=== PATIENT | female | born 1990 | race American Indian/Alaskan Native ===

== ENCOUNTER 2017-04-08 09:00 | Inpatient (IN) | payer MEDICAID ==
[2017-04-08 10:12] LABS: Hematocrit 20.5 % (30.3-42.9); Hemoglobin 6.4 gm/dl (10.1-14.3)
--- NOTE | 2017-04-08 11:43 | Ultrasound Report ---
ULTRASOUND BIOPHYSICAL PROFILE: History: well being Technique: Transabdominal ultrasound with Doppler interrogation. 2 - breathing movements 2 - movements 2 - posture and tone 2 - Qualitative amniotic fluid volume 8 - TOTAL SCORE OF POSSIBLE 8 Heart Rate (bpm) 127
--- NOTE | 2017-04-08 11:44 | Ultrasound Report ---
ULTRASOUND OB LIMITED History: well being Technique: Transabdominal ultrasound with Doppler interrogation. Gestation: Single Position: Cephalic Amniotic Fluid: Decreased JAN = 5.2 cm Heart Rate: 137 BPM
[2017-04-08] MEDS ORDERED: NACL 0.9% 500 ML 500 ML IV SCH (11:52)
[2017-04-08] MEDS ORDERED: BRETHINE SUB-Q PRN ×2 (14:34→21:10)
--- NOTE | 2017-04-08 14:44 | History and Physical Report ---
History of Present Illness Date of examination: 04/08/17 Date of admission: 03/29/17 Chief complaint: SIUP at 37 weeks with symptomatic anemia. History of present illness: Patient is a 26 year old , LMP 07/21/16, EDC 04/27/17 at 37 weeks and 2 days who was admitted for symptomatic anemia. Patient is managed by [facility]. Prior to that, she was receiving care at another doctor. Her H/H was 9.7 at the initial visit. Earlier this month, it decreased to 6.9/23. Patient has been on iron but this week, she started to experience lightheadedness. She was seen in the office yesterday and sent to the hospital for evaluation, but she did not want to go. This AM, she was sent for NST, BPP, and repeat H/H. Current H/H is 6.4/20. NST is CAT 1. JAN is 5.2. Past History Past Medical History: other (anemia) Past Surgical History: no surgical history - Obstetrical History Expected Date of Delivery: 04/27/17 Actual Gestation: 37 Week(s) 2 Day(s) : 4 Para: 3 Hx # Term Pregnancies: 3 Number of Living Children: 3 Medications and Allergies Allergies Allergy/AdvReac Type Severity Reaction Status Date / Time No Known Allergies Allergy Unverified 04/08/17 09:27 Home Medications Medication Instructions Recorded Confirmed Last Taken Type Children's Ferrous Sulfate 56 mg PO DAILY 04/08/17 04/08/17 04/07/17 08:00 History Vit No.129/Iron/Folic 1 tab PO BID 04/08/17 04/08/17 04/07/17 18:00 History [ One Daily Tablet] Active Meds: Active Medications Sodium Chloride (Nacl 0.9% 500 Ml) 500 mls @ 0 mls/hr IV ONCE LUCINA PRN Reason: As Directed Stop: 04/08/17 23:00 - Vital Signs Vital signs: Vital Signs Pulse BP 88 91/54 04/08/17 09:39 04/08/17 09:39 Temp Pulse Resp BP Pulse Ox 97.6 F 92 H 18 102/52 99 04/08/17 14:16 04/08/17 14:39 04/08/17 14:16 04/08/17 14:17 04/08/17 14:39 - Physical Exam Cardiovascular: Normal S1, Normal S2 Lungs: Positive: Clear to auscultation Vulva: both: normal Adnexa: both: normal Deep Tendon Reflex Grade: Normal +2 - Obstetrical FHR: category 1 Uterine Contraction Monitor Mode: External Cervical Dilatation: 0 Cervical Effacement Percentage: 50 station: -2 Uterine Contraction Pattern: Absent Results Result Diagrams: 04/08/17 09:45 Abnormal lab results 04/08/17 04/08/17 Range/Units 09:45 12:15 Hgb 6.4 L (10.1-14.3) gm/dl Hct 20.5 L (30.3-42.9) % Crossmatch See Detail All other labs normal. Assessment and Plan - Patient Problems (1) 37 weeks gestation of Current Visit: Yes Status: Acute Plan to address problem: Admit to labor floor. Routine admitting labs. IV fluid. (2) Signs and symptoms of anemia Current Visit: Yes Status: Acute Plan to address problem: Transfuse 2 units of PRBCs. CBC 3 hrs after second unit. (3) Oligohydramnios Current Visit: Yes Status: Acute Plan to address problem: Admit patient to labor floor. and toco monitoring. Patient is being transfused now. Will induce labor with cervidil after transfusion is completed. Case was discussed with MFM Dr. Reid.
[2017-04-08] MEDS ORDERED: LACTATED RINGERS 1,000 ML IV SCH (15:00)
[2017-04-08] MEDS ORDERED: CERVIDIL VG ONE (21:07)
[2017-04-08] MEDS ORDERED: PHENERGAN PO PRN (21:10)
[2017-04-08] MEDS ORDERED: BRETHINE IVP PRN (21:10)
[2017-04-08] MEDS ORDERED: NARCAN 0.4 MG/1 ML IV PRN (21:10)
[2017-04-08] MEDS ORDERED: ZOFRAN IV PRN (21:10)
[2017-04-08] MEDS ORDERED: ePHEDrine SULFATE IV PRN (21:10)
[2017-04-08] MEDS ORDERED: XYLOCAINE 2% INFILTRATI ONE (21:10)
[2017-04-08] MEDS ORDERED: STADOL IV PRN (21:10)
[2017-04-08] MEDS ORDERED: MINERAL OIL PO PRN (21:10)
[2017-04-08] MEDS ORDERED: SUBLIMAZE IV PRN (21:27)
[2017-04-08] MEDS: LACTATED RINGERS 1,000 ML IV SCH (21:45)
[2017-04-08] MEDS ORDERED: PITOCin/NS 30 UNIT/500ML 30 UNITS/500 ML BAG IV SCH (22:00)
[2017-04-08] MEDS ORDERED: PITOCin/NS 20 UNIT/1000ML DRIP 20 UNITS/1,000 ML BAG IV SCH (22:00)
[2017-04-08 23:05] LABS: Hematocrit 25.3 % (30.3-42.9); Hemoglobin 8.1 gm/dl (10.1-14.3); Mean Corpuscular HGB Conc 32 % (30-34); Mean Corpuscular Volume 71 fl (79-97); Platelet Count 266 K/mm3 (140-440); Red Blood Count 3.59 M/mm3 (3.65-5.03)
[2017-04-08 23:07] LABS: Mean Corpuscular Hemoglobin 23 pg (28-32); Red Cell Distribution Width 20.6 % (13.2-15.2)
[2017-04-09] MEDS: LACTATED RINGERS 1,000 ML IV SCH ×2 (06:35→16:22)
--- NOTE | 2017-04-09 11:33 | Progress Note ---
Assessment and Plan - Patient Problems (1) 37 weeks gestation of Current Visit: Yes Status: Acute Plan to address problem: Admit to labor floor. Routine admitting labs. IV fluid. (2) Signs and symptoms of anemia Current Visit: Yes Status: Acute Plan to address problem: Patient is feeling better after transfusion. (3) Oligohydramnios Current Visit: Yes Status: Acute Plan to address problem: . Continue and toco monitoring. Will start pitocin augmentation. Anticipate . Subjective - Subjective Date of service: 04/09/17 Principal diagnosis: SIUP at 37 weeks and 3 days with symptomatic anemia and oligohydramnios Interval history: Patient is a 26 year old , LMP 07/21/16, EDC 04/27/17 at 37 weeks and 2 days who was admitted for symptomatic anemia. She received 2 units of blood and her H/H improved to 8.1/25.3. Sonogram showed JAN 5.2. Patient was induced with cervidil which was removed at 10 AM today. She is having occasional contractions. tracing is CAT1. Objective - Vital Signs Vital Signs: Vital Signs - 12hr 04/09/17 04/09/17 04/09/17 00:15 00:20 00:25 Temperature Pulse Rate 85 82 82 Respiratory Rate Blood Pressure Blood Pressure [Left] O2 Sat by Pulse 97 97 97 Oximetry 04/09/17 04/09/17 04/09/17 00:30 00:36 00:41 Temperature Pulse Rate 83 75 79 Respiratory Rate Blood Pressure Blood Pressure [Left] O2 Sat by Pulse 97 97 97 Oximetry 04/09/17 04/09/17 04/09/17 00:45 00:50 00:55 Temperature Pulse Rate 84 82 81 Respiratory Rate Blood Pressure Blood Pressure [Left] O2 Sat by Pulse 96 97 98 Oximetry 04/09/17 04/09/17 04/09/17 01:00 01:05 01:10 Temperature Pulse Rate 81 80 81 Respiratory Rate Blood Pressure Blood Pressure [Left] O2 Sat by Pulse 99 98 97 Oximetry 04/09/17 04/09/17 04/09/17 01:15 01:20 01:25 Temperature Pulse Rate 80 82 78 Respiratory Rate Blood Pressure Blood Pressure [Left] O2 Sat by Pulse 98 98 97 Oximetry 04/09/17 04/09/17 04/09/17 01:31 01:35 01:40 Temperature Pulse Rate 91 H 79 76 Respiratory Rate Blood Pressure Blood Pressure [Left] O2 Sat by Pulse 96 99 98 Oximetry 04/09/17 04/09/17 04/09/17 01:45 01:50 01:56 Temperature Pulse Rate 78 80 86 Respiratory Rate Blood Pressure Blood Pressure [Left] O2 Sat by Pulse 98 98 98 Oximetry 04/09/17 04/09/17 04/09/17 02:00 02:01 02:05 Temperature Pulse Rate 77 86 82 Respiratory Rate Blood Pressure 94/52 Blood Pressure [Left] O2 Sat by Pulse 98 100 Oximetry 04/09/17 04/09/17 04/09/17 02:11 02:16 02:20 Temperature Pulse Rate 88 79 88 Respiratory Rate Blood Pressure Blood Pressure [Left] O2 Sat by Pulse 98 98 96 Oximetry 04/09/17 04/09/17 04/09/17 02:26 02:31 04:04 Temperature Pulse Rate 91 H 107 H 92 H Respiratory Rate Blood Pressure Blood Pressure [Left] O2 Sat by Pulse 99 100 96 Oximetry 04/09/17 04/09/17 04/09/17 04:08 04:13 04:17 Temperature Pulse Rate 88 92 H 94 H Respiratory Rate Blood Pressure Blood Pressure [Left] O2 Sat by Pulse 97 95 88 Oximetry 04/09/17 04/09/17 04/09/17 04:19 04:22 04:23 Temperature Pulse Rate 91 H 95 H 80 Respiratory Rate Blood Pressure Blood Pressure [Left] O2 Sat by Pulse 96 93 94 Oximetry 04/09/17 04/09/17 04/09/17 04:28 04:29 04:33 Temperature Pulse Rate 88 88 90 Respiratory Rate Blood Pressure Blood Pressure [Left] O2 Sat by Pulse 94 94 96 Oximetry 04/09/17 04/09/17 04/09/17 04:35 04:38 04:41 Temperature Pulse Rate 88 85 99 H Respiratory Rate Blood Pressure Blood Pressure [Left] O2 Sat by Pulse 92 96 90 Oximetry 04/09/17 04/09/17 04/09/17 04:44 04:48 04:53 Temperature Pulse Rate 94 H 89 66 Respiratory Rate Blood Pressure Blood Pressure [Left] O2 Sat by Pulse 98 96 96 Oximetry 04/09/17 04/09/17 04/09/17 04:58 05:03 05:09 Temperature Pulse Rate 81 89 89 Respiratory Rate Blood Pressure Blood Pressure [Left] O2 Sat by Pulse 99 97 97 Oximetry 04/09/17 04/09/17 04/09/17 05:12 05:13 05:18 Temperature Pulse Rate 98 H 92 H 94 H Respiratory Rate Blood Pressure Blood Pressure [Left] O2 Sat by Pulse 93 99 98 Oximetry 04/09/17 04/09/17 04/09/17 05:23 05:28 05:32 Temperature Pulse Rate 86 88 90 Respiratory Rate Blood Pressure Blood Pressure [Left] O2 Sat by Pulse 99 97 87 Oximetry 04/09/17 04/09/17 04/09/17 05:33 05:38 05:42 Temperature Pulse Rate 86 85 55 L Respiratory Rate Blood Pressure Blood Pressure [Left] O2 Sat by Pulse 98 99 89 Oximetry 04/09/17 04/09/17 04/09/17 05:44 05:48 05:53 Temperature Pulse Rate 89 91 H 87 Respiratory Rate Blood Pressure Blood Pressure [Left] O2 Sat by Pulse 98 99 98 Oximetry 04/09/17 04/09/17 04/09/17 05:58 06:21 07:23 Temperature Pulse Rate 93 H 86 83 Respiratory Rate Blood Pressure 108/62 Blood Pressure [Left] O2 Sat by Pulse 99 97 Oximetry 04/09/17 04/09/17 04/09/17 07:25 07:28 07:33 Temperature 98.0 F Pulse Rate 93 H 91 H 92 H Respiratory 20 Rate Blood Pressure 91/53 Blood Pressure 91/53 [Left] O2 Sat by Pulse 99 98 Oximetry 04/09/17 04/09/17 04/09/17 07:38 07:43 07:48 Temperature Pulse Rate 92 H 92 H 90 Respiratory Rate Blood Pressure Blood Pressure [Left] O2 Sat by Pulse 98 96 98 Oximetry 04/09/17 04/09/17 04/09/17 07:53 07:58 08:03 Temperature Pulse Rate 90 92 H 94 H Respiratory Rate Blood Pressure Blood Pressure [Left] O2 Sat by Pulse 97 97 95 Oximetry 04/09/17 04/09/17 04/09/17 08:08 08:13 08:18 Temperature Pulse Rate 87 90 89 Respiratory Rate Blood Pressure Blood Pressure [Left] O2 Sat by Pulse 96 96 96 Oximetry 04/09/17 04/09/17 04/09/17 08:23 08:28 08:33 Temperature Pulse Rate 91 H 95 H 93 H Respiratory Rate Blood Pressure Blood Pressure [Left] O2 Sat by Pulse 96 95 96 Oximetry 04/09/17 04/09/17 04/09/17 08:36 08:38 08:43 Temperature Pulse Rate 101 H 95 H 95 H Respiratory Rate Blood Pressure Blood Pressure [Left] O2 Sat by Pulse 94 96 98 Oximetry 04/09/17 10:08 Temperature Pulse Rate 83 Respiratory Rate Blood Pressure 96/53 Blood Pressure [Left] O2 Sat by Pulse Oximetry - Exam Cardiovascular: Normal S1, Normal S2 Lungs: Clear to auscultation Vulva: both: normal FHR: category 1 Uterine Contraction Monitor Mode: External Cervical Dilatation: 2 Cervical Effacement Percentage: 50 station: -2 Uterine Contraction Pattern: Irregular Deep Tendon Reflex Grade: Normal +2 - Labs Labs: Abnormal Labs 04/08/17 04/08/17 04/08/17 09:45 12:15 22:39 RBC 3.59 L Hgb 6.4 L 8.1 L Hct 20.5 L 25.3 L MCV 71 L MCH 23 L RDW 20.6 H Crossmatch See Detail Laboratory Results - last 24 hr 04/08/17 04/08/17 12:15 22:39 WBC 10.3 RBC 3.59 L Hgb 8.1 L Hct 25.3 L MCV 71 L MCH 23 L MCHC 32 RDW 20.6 H Plt Count 266 Blood Type O POSITIVE Antibody Screen Negative Crossmatch See Detail
[2017-04-09] MEDS: PITOCin/NS 30 UNIT/500ML 30 UNITS/500 ML BAG IV SCH ×5 (13:08→16:23)
--- NOTE | 2017-04-09 19:03 | Event Note ---
Date: 04/09/17 S: Pt in semi-chua's position. Partner at bedside. Reports feeling her contractions but tolerable. Denies fatigue, lightheadedness or palpitations O: FHR 130, moderate variability, 15x15 accels, no decels CTXS q2-5mins, palpate moderate SVE 2-3/50/-2/vtx/intact Pitocin @ 18 mu/min A: 26yo G 4 P 3 0 0 3 @ 37 weeks 3 days S/P blood transfusion for symptomatic anemia No active labor P: Continue routine labor orders Continue oxytocin for labor induction Anticipate vaginal delivery
[2017-04-10] MEDS: LACTATED RINGERS 1,000 ML IV SCH (00:24)
[2017-04-10] MEDS ORDERED: CYTOTEC ONE ×2 (09:04→20:23)
--- NOTE | 2017-04-10 09:10 | Progress Note ---
Assessment and Plan - Patient Problems (1) 37 weeks gestation of Current Visit: Yes Status: Acute Plan to address problem: Admit to labor floor. Routine admitting labs. IV fluid. (2) Signs and symptoms of anemia Current Visit: Yes Status: Acute Plan to address problem: Patient is feeling better after transfusion. (3) Oligohydramnios Current Visit: Yes Status: Acute Plan to address problem: . Continue and toco monitoring. Induction restarted with 25 mcg of cytotec which was inserted at 9:10 AM. Anticipate . Subjective - Subjective Date of service: 04/10/17 Principal diagnosis: SIUP at 37 weeks and 3 days with symptomatic anemia and oligohydramnios Interval history: Patient is a 26 year old , LMP 07/21/16, EDC 04/27/17 at 37 weeks and 2 days who was admitted for symptomatic anemia. She received 2 units of blood and her H/H improved to 8.1/25.3. Sonogram showed JAN 5.2. Patient was induced with cervidil and piticin was started later. She had occasional contractions but made no cervical changes. tracing has been CAT1. Pitocin was discontinued last night. She has no contraction at this time. Cervix: 2-3/50%/-2, unchanged. Objective - Vital Signs Vital Signs: Vital Signs - 12hr 04/09/17 04/09/17 04/09/17 21:07 21:12 21:18 Temperature Pulse Rate 78 81 67 Respiratory Rate Blood Pressure Blood Pressure [Left] O2 Sat by Pulse 98 97 98 Oximetry 04/09/17 04/09/17 04/09/17 21:23 21:29 21:32 Temperature Pulse Rate 69 80 70 Respiratory Rate Blood Pressure Blood Pressure [Left] O2 Sat by Pulse 96 98 91 Oximetry 04/09/17 04/09/17 04/09/17 21:34 21:39 21:44 Temperature Pulse Rate 69 86 84 Respiratory Rate Blood Pressure Blood Pressure [Left] O2 Sat by Pulse 97 98 98 Oximetry 04/09/17 04/09/17 04/09/17 21:49 21:54 21:55 Temperature Pulse Rate 84 84 79 Respiratory Rate Blood Pressure Blood Pressure [Left] O2 Sat by Pulse 96 99 93 Oximetry 04/09/17 04/09/17 04/09/17 21:59 22:04 22:09 Temperature Pulse Rate 86 81 72 Respiratory Rate Blood Pressure Blood Pressure [Left] O2 Sat by Pulse 96 96 96 Oximetry 04/09/17 04/09/17 04/09/17 22:14 22:19 22:24 Temperature Pulse Rate 83 80 79 Respiratory Rate Blood Pressure Blood Pressure [Left] O2 Sat by Pulse 97 95 97 Oximetry 04/09/17 04/09/17 04/09/17 22:29 22:34 22:39 Temperature Pulse Rate 75 79 80 Respiratory Rate Blood Pressure Blood Pressure [Left] O2 Sat by Pulse 97 98 96 Oximetry 04/09/17 04/09/17 04/09/17 22:40 22:44 22:49 Temperature Pulse Rate 80 78 79 Respiratory Rate Blood Pressure Blood Pressure [Left] O2 Sat by Pulse 88 95 98 Oximetry 04/09/17 04/09/17 04/09/17 22:51 22:54 22:59 Temperature Pulse Rate 78 81 81 Respiratory Rate Blood Pressure Blood Pressure [Left] O2 Sat by Pulse 94 97 98 Oximetry 04/09/17 04/10/17 04/10/17 23:04 01:11 05:25 Temperature 97.4 F L Pulse Rate 79 76 80 Respiratory 16 Rate Blood Pressure 100/51 Blood Pressure 100/51 [Left] O2 Sat by Pulse 99 98 Oximetry - Exam Cardiovascular: Normal S1, Normal S2 Lungs: Clear to auscultation Vulva: both: normal FHR: category 1 Uterine Contraction Monitor Mode: External Cervical Dilatation: 2 Cervical Effacement Percentage: 50 station: -2 Uterine Contraction Pattern: Absent Uterine Contraction Intensity: Mild Deep Tendon Reflex Grade: Normal +2 - Labs Labs: Abnormal Labs 04/08/17 04/08/17 04/08/17 09:45 12:15 22:39 RBC 3.59 L Hgb 6.4 L 8.1 L Hct 20.5 L 25.3 L MCV 71 L MCH 23 L RDW 20.6 H Crossmatch See Detail Laboratory Results - last 24 hr 04/08/17 22:39 RPR Nonreactive
[2017-04-10] MEDS ORDERED: ANCEF/STERILE WATER 2 GM/20 ML 2 GM/20 ML SYRINGE IV NR (12:00)
--- NOTE | 2017-04-10 12:46 | Progress Note ---
Assessment and Plan A: IUP @ 37 4/7 weeks Category I Tracing Anemia GBS Negative P: AROM Internals x 2 Start Pitocin Augmentation Subjective - Subjective Date of service: 04/10/17 Principal diagnosis: SIUP at 37 weeks and 3 days with symptomatic anemia and oligohydramnios Patient reports: movement normal, contractions Objective - Vital Signs Vital Signs: Vital Signs - 12hr 04/10/17 04/10/17 04/10/17 01:11 05:25 09:16 Temperature 97.4 F L 98.2 F Pulse Rate 76 80 82 Respiratory 16 16 Rate Blood Pressure 100/51 Blood Pressure 100/51 96/55 [Left] O2 Sat by Pulse 98 100 Oximetry 04/10/17 04/10/17 09:21 09:22 Temperature Pulse Rate 78 82 Respiratory Rate Blood Pressure 96/55 Blood Pressure [Left] O2 Sat by Pulse 0 L Oximetry - Exam Breasts: normal Lungs: Clear to auscultation, Normal air movement Abdomen: Present: normal appearance, soft, normal bowel sounds Uterus: Present: normal, firm, fundal height above umbilicus FHR: category 1 Uterine Contraction Monitor Mode: Internal Cervical Dilatation: 3.5 (Small amount of bloody fluids upon AROM at 1227) Cervical Effacement Percentage: 70 station: -3 Uterine Contraction Pattern: Irregular Uterine Tone Measurement Phase: Resting Uterine Contraction Intensity: Mild Extremities: normal - Labs Labs: Abnormal Labs 04/08/17 04/08/17 04/08/17 09:45 12:15 22:39 RBC 3.59 L Hgb 6.4 L 8.1 L Hct 20.5 L 25.3 L MCV 71 L MCH 23 L RDW 20.6 H Crossmatch See Detail
[2017-04-10] MEDS ORDERED: PITOCin/NS 30 UNIT/500ML 30 UNITS/500 ML BAG IV SCH (13:00)
[2017-04-10] MEDS ORDERED: MILK OF MAGNESIA PO PRN (16:28)
[2017-04-10] MEDS ORDERED: DULCOLAX PR PRN (16:28)
[2017-04-10] MEDS ORDERED: BENADRYL PO PRN (16:28)
[2017-04-10] MEDS ORDERED: NORCO 5/325 PO PRN (16:28)
[2017-04-10] MEDS ORDERED: TUCKS PAD TP PRN (16:28)
--- NOTE | 2017-04-10 16:35 | Procedure Note ---
OB Delivery Note - Delivery Date of Delivery: 04/10/17 Surgeon: AREN MATOS Estimated blood loss: 200cc - Vaginal Delivery presentation: vertex Delivery position: OA Intrapartum events: mult. late decelerations, mult.variable deceleratio Delivery induction: cervidil Delivery augmentation: rupture of membranes, pitocin Delivery monitor: internal FHT, internal uterine Route of delivery: Delivery placenta: spontaneous Delivery cord: 3 umbilical vessels Episiotomy: none Delivery laceration: none Anesthesia: none Delivery comments: of a live 6'15 female infant over a intact perineum under IV pain control with Apgars of 8 and 9 at 1615 on 04/10/2017. directly to maternal abd/ chest, skin to skin contact. Spontaneous delivery of placenta complete and intact with Rose side presenting at 1617. Fundus is firm and midline located 4 below the U. Lochia is scant. Delayed cord clamping and cutting; Cord cut by the father of the baby. Placenta discarded. Cord blood collected. - Infant A at 1 minute: 8 at 5 minutes: 9 Gender: Female (6'15)
[2017-04-10] MEDS ORDERED: SODIUM CHLORIDE FLUSH SYRINGE 10 ML IV NR (17:00)
[2017-04-10] MEDS ORDERED: PITOCin/NS 20 UNIT/1000ML DRIP 0 MILLIUNITS/0 ML BAG IV ONE (20:18)
[2017-04-10] MEDS ORDERED: PITOCin/NS 20 UNIT/1000ML DRIP 20,000 MILLIUNITS/1,000 ML BAG IV ONE (20:23)
[2017-04-10] MEDS ORDERED: CYTOTEC VG ONE ×2 (20:27→22:00)
[2017-04-10] MEDS ORDERED: NACL 0.9% 1000 ML 1,000 ML IV ONE (20:30)
[2017-04-10] MEDS ORDERED: NACL 0.9% 1000 ML 1,000 ML ONE ×3 (20:30→23:18)
[2017-04-10] MEDS ORDERED: NACL 0.9% 500 ML 500 ML IV NR (20:36)
[2017-04-10] MEDS ORDERED: HEMABATE IM ONE ×3 (20:38→21:36)
[2017-04-10] MEDS ORDERED: BENADRYL IV ONE (20:45)
[2017-04-10] MEDS ORDERED: TYLENOL PR PRN (20:45)
--- NOTE | 2017-04-10 20:48 | Event Note ---
Date: 04/10/17 Called to evaluate pt with hemorrhage. She is a 26 year old s/ p today after 2 day induction due to symptomatic anemia. She received 2 units of blood and her H/H improved from 6.4/20.5 to 8.1/25.3 and her EBL was 200mls. After transfer to the floor she started heavy bleeding ~ 1000mls per the nurse, and pt temporarily lost consciousness (< 1 min). She is currently in the ICU after receiving IV fluid bolus, IM Methergine, VT Cytotec and blood has been ordered 4 units. VSS BP 106/53 P 102 Pt is Alert and oriented x3 Abdomen - Fundus firm, but continuous oozing Linares catheter placed Will take to the OR for D&C/Uterine exploration for suspected retained POC
[2017-04-10 20:58] LABS: Hematocrit 22.1 % (30.3-42.9); Hemoglobin 6.7 gm/dl (10.1-14.3)
[2017-04-10] MEDS ORDERED: LACTATED RINGERS 1,000 ML ONE ×2 (21:31→22:40)
[2017-04-10] MEDS ORDERED: LACTATED RINGERS 1,000 ML IV ONE (21:33)
[2017-04-10] MEDS ORDERED: METHERGINE IM ONE ×2 (21:34→23:22)
[2017-04-10] MEDS ORDERED: AMIDATE IV ONE (22:05)
[2017-04-10] MEDS ORDERED: XYLOCAINE MPF 2% ONE (22:05)
[2017-04-10] MEDS ORDERED: DIPRIVAN 10 MG/ML IV ONE (22:05)
[2017-04-10] MEDS ORDERED: ePHEDrine SULFATE ONE (22:37)
[2017-04-10] MEDS ORDERED: VERSED ONE (22:47)
[2017-04-10] MEDS ORDERED: NACL 0.9% 500 ML 500 ML IV ONE ×2 (23:05→23:49)
--- NOTE | 2017-04-11 00:02 | Operative Report ---
Operative Report Operative Report: PREOPERATIVE DIAGNOSIS: 1. Status post normal spontaneous vaginal delivery 2. hemorrhage POSTOPERATIVE DIAGNOSIS: Same OPERATIVE PROCEDURE: 1. Dilatation and curettage 2. Placement of Bakri balloon SURGEON: Juarez Shipley MD ANESTHESIA: Gen. mask ANESTHESIOLOGIST: Dr. Block ESTIMATED BLOOD LOSS: 1500 mL's FINDINGS: A 20 week size uterus with scant amounts of products of conception. No obvious cervical lacerations. Persistent scant oozing from the uterus COMPLICATIONS: None COUNTS: Correct x3. PROCEDURE: After the patient was correctly identified, and after general anesthesia was administered, the patient was prepped and draped in the usual sterile fashion and placed in dorsal lithotomy position. First speculum was placed in the vaginal vault and the anterior lip of the cervix was grasped using Ring forceps. The 14 mm vaccurette was used to suction blood and products of conception from the uterine cavity. After all the products of conception were removed, the oozing persisted through the cervical os despite bimanual massage and IV Pitocin. The uterus was firm. At this point the Bakri balloon was then placed, and placement was not to the fundus, but was occluding the lower uterine segment which was confirmed by ultrasound. Since the bleeding had slowed down tremendously, replacement of the balloon was not performed. At this point the procedure was considered complete. All instruments were removed from the vagina. The patient tolerated the procedure well and was transferred to the recovery room in stable condition.
[2017-04-11 00:12] LABS: INR 3.43 (0.87-1.13)
[2017-04-11 01:40] LABS: Partial Thromboplastin Time 70.4 Sec. (24.2-36.6)
[2017-04-11] MEDS ORDERED: NACL 0.9% 1000 ML 1,000 ML IV ONE (03:00)
[2017-04-11] MEDS ORDERED: NACL 0.9% 1000 ML 1,000 ML ONE (04:02)
[2017-04-11] MEDS: MOTRIN PO SCH ×2 (05:28→11:20)
[2017-04-11] MEDS: LACTATED RINGERS 1,000 ML IV SCH ×4 (05:29→22:26)
[2017-04-11 07:59] LABS: Hematocrit 21.6 % (30.3-42.9); Hemoglobin 7.3 gm/dl (10.1-14.3)
--- NOTE | 2017-04-11 08:31 | Progress Note ---
Assessment and Plan - Patient Problems (1) (normal spontaneous vaginal delivery) Onset Date: 04/11/17 Current Visit: Yes Status: Resolved Plan to address problem: A: S/P with hemorrhage - improved s/p D&C and placement of Bakri Balloon Acute blood loss anemia - improved with 6 units of PRBC's (2 prior to delivery + 4 post delivery) Coagulation defects - DIC - improving after 1 unit FFP P: Will continue present management in ICU Will remove Bakri Balloon this afternoon Continue to monitor bleeding and coagulation studies (2) hemorrhage Onset Date: 04/11/17 Current Visit: Yes Status: Resolved Qualifiers: hemorrhage type: coagulation defects Qualified Code(s): O72.3 - coagulation defects (3) Acute blood loss anemia Onset Date: 04/11/17 Current Visit: Yes Status: Acute Subjective - Subjective Date of service: 04/11/17 Principal diagnosis: s/p with hemorrhage; s/p D&C Interval history: Pt is feeling well, tolerating sips of water. She complains of left hand swelling. Patient reports: voiding normally (via vickers) : doing well, bottle feeding Objective - Vital Signs Latest vital signs: Vital Signs Temp Pulse Resp BP BP BP Pulse Ox 04/11/17 08:15 115 H 26 H 101/60 04/11/17 08:00 113 H 26 H 87/51 95 04/11/17 07:45 115 H 24 109/65 98 04/11/17 07:30 115 H 16 104/63 100 04/11/17 07:15 112 H 24 99/61 04/11/17 07:00 114 H 19 105/63 100 04/11/17 06:45 111 H 16 106/61 04/11/17 06:30 113 H 26 H 100/67 04/11/17 06:20 115 H 23 105/61 100 04/11/17 06:10 115 H 28 H 114/66 100 04/11/17 06:00 114 H 21 114/66 98 04/11/17 05:50 118 H 26 H 110/65 100 04/11/17 05:40 110 H 17 103/61 100 04/11/17 05:30 112 H 24 105/62 99 04/11/17 05:20 114 H 22 105/62 98 04/11/17 05:10 118 H 23 101/60 100 04/11/17 05:00 115 H 18 101/60 99 04/11/17 04:50 119 H 21 105/59 99 04/11/17 04:42 107 H 21 108/67 99 04/11/17 04:40 115 H 28 H 108/67 100 04/11/17 04:33 100 04/11/17 04:30 118 H 26 H 108/67 04/11/17 04:20 114 H 27 H 108/61 100 04/11/17 04:16 98.2 F 113 H 27 H 107/61 100 04/11/17 04:10 111 H 25 H 107/61 100 04/11/17 04:00 121 H 26 H 107/61 99 04/11/17 03:54 97.6 F 02 03:50 128 H 22 100/53 100 04/11/17 03:46 97.6 F 126 H 24 100/53 100 04/11/17 03:40 125 H 26 H 104/56 100 04/11/17 03:31 97.6 F 132 H 24 102/60 100 04/11/17 03:30 128 H 21 104/56 100 04/11/17 03:20 123 H 28 H 102/60 99 04/11/17 03:10 127 H 21 116/61 100 04/11/17 03:00 126 H 26 H 116/61 100 04/11/17 02:53 98.7 F 130 H 22 108/62 100 04/11/17 02:50 130 H 17 108/62 100 04/11/17 02:40 122 H 24 102/60 100 04/11/17 02:30 97.6 F 126 H 15 102/60 100 04/11/17 02:20 114 H 25 H 95/57 100 04/11/17 02:10 123 H 21 97/56 100 04/11/17 02:00 97.6 F 122 H 24 97/56 100 04/11/17 01:50 131 H 14 98/47 98 04/11/17 01:45 98.1 F 127 H 24 98/47 98 04/11/17 01:40 127 H 20 96/45 99 04/11/17 01:30 132 H 22 96/45 94 04/11/17 01:27 98.7 F 120 H 18 96/45 96 02//18 01:20 132 H 19 105/43 93 02/23/18 01:15 97.6 F 126 H 17 95/44 95 04/11/18 01:10 97.6 F 127 H 17 93/42 95 02/18 01:00 125 H 20 96/40 92 04/11/18 00:50 134 H 11 L 79/39 91 04/11/18 00:40 135 H 18 90/48 93 04/11/18 00:30 126 H 18 96/44 96 04/11/18 00:25 121 H 20 100/49 91 04/11/18 00:20 120 H 24 90/43 96 04/11/18 00:15 114 H 18 100/34 98 04/11/18 00:10 126 H 13 107/60 100 04/11/18 00:08 97.6 F 122 H 28 H 82/37 97 02/22/18 23:50 107/60 0222/18 23:40 107/60 0222/18 23:36 107/60 02/18 21:50 102 H 19 107/60 02/18 21:40 99 H 16 106/53 100 02/22/18 21:30 95 H 23 105/56 0222/18 21:24 98.2 F 97 H 19 103/54 100 0222/18 21:20 98 H 24 106/53 100 02/22/18 21:10 97 H 26 H 96/60 02/22/18 21:09 98.7 F 112 H 20 96/60 02/18 21:00 113 H 17 93/40 100 0222/18 20:50 91 H 27 H 22/18 20:40 94 H 21 93/43 02/22/18 20:26 73/33 02/22/18 20:17 117 H 18 69/31 02/22/18 20:10 105 H 20 71/28 02/22/18 17:37 97 H 98 02/22/18 17:32 90 98 02/22/18 17:27 98 H 98 02/22/18 17:22 92 H 98 02/22/18 17:17 92 H 98 02/22/18 17:12 90 98 0222/18 17:07 91 H 98 0222/18 17:02 94 H 99 04/10/17 16:57 99 H 98 04/10/17 16:52 97 H 98 04/10/17 16:47 95 H 98 04/10/17 16:42 94 H 98 04/10/17 16:37 99 H 98 04/10/17 16:35 96 H 97/48 04/10/17 16:32 102 H 98 04/10/17 16:26 118 H 99 04/10/17 13:17 81 117/63 04/10/17 09:22 82 96/55 04/10/17 09:21 78 0 L 04/10/17 09:16 98.2 F 82 16 96/55 100 Intake and Output 04/10/17 04/11/17 04/11/17 22:59 06:59 14:59 Intake Total 748 1441.667 Output Total 1000 Balance 748 441.667 Intake: IV 516.667 Lactated Ringers 1,000 ml 16.667 @ 125 mls/hr IV DIRECT LUCINA Rx#:[id number] Oral 120 Blood Product 748 805 Fresh Frozen Plasma 305 Thawed Unit [id number] Leukoreduced Red Blood 248 Cells Unit [id number] Leukoreduced Red Blood 250 Cells Unit [id number] Leukoreduced Red Blood 250 Cells Unit [id number] Leukoreduced Red Blood 250 Cells Unit [id number] Leukoreduced Red Blood 250 Cells Unit [id number] Output: Drainage 450 Urine 450 Void 100 Other 100 Other: Total, Intake Amount 120 Total, Output Amount 200 Voiding Method Indwelling Catheter Estimated Blood Loss 200 - Exam Breasts: Present: deferred Cardiovascular: Present: Regular rate Lungs: Present: Clear to auscultation Abdomen: Present: normal appearance, soft, tenderness Uterus: Present: normal, firm, fundal height below umbilicus Extremities: Present: normal, tenderness (left hand) - Labs Labs: Abnormal lab results 04/08/17 04/10/17 04/10/17 Range/Units 12:15 00:37 20:50 Hgb 6.7 L (10.1-14.3) gm/dl Hct 22.1 L (30.3-42.9) % PT (12.2-14.9) Sec. INR (0.87-1.13) APTT (24.2-36.6) Sec. Fibrinogen (211-480) mg/dl D-Dimer > 14482 H (0-234) ng/mlDDU POC ABG pCO2 (35-45) POC ABG pO2 (80-105) Crossmatch See Detail 04/10/17 04/10/17 04/11/17 Range/Units 21:48 23:20 07:48 Hgb 7.3 L (10.1-14.3) gm/dl Hct 21.6 L (30.3-42.9) % PT 37.0 H (12.2-14.9) Sec. INR 3.43 H (0.87-1.13) APTT 70.4 H* (24.2-36.6) Sec. Fibrinogen 60 L* (211-480) mg/dl D-Dimer (0-234) ng/mlDDU POC ABG pCO2 27.3 L (35-45) POC ABG pO2 341 H (80-105) Crossmatch Laboratory Results - last 24 hr 04/08/17 04/10/17 04/10/17 12:15 00:37 20:50 Hgb 6.7 L Hct 22.1 L PT INR APTT Fibrinogen D-Dimer > 29703 H POC ABG pH POC ABG pCO2 POC ABG pO2 POC ABG HCO3 POC ABG Total CO2 POC ABG O2 Sat POC ABG Base Excess FiO2 Blood Type O POSITIVE Antibody Screen Negative Crossmatch See Detail 04/10/17 04/10/17 04/11/17 21:48 23:20 07:48 Hgb 7.3 L Hct 21.6 L PT 37.0 H INR 3.43 H APTT 70.4 H* Fibrinogen 60 L* D-Dimer POC ABG pH 7.391 POC ABG pCO2 27.3 L POC ABG pO2 341 H POC ABG HCO3 16.6 POC ABG Total CO2 17 POC ABG O2 Sat 100 POC ABG Base Excess -8 FiO2 100 Blood Type Antibody Screen Crossmatch
[2017-04-11] MEDS ORDERED: LACTATED RINGERS 1,000 ML IV ONE (09:39)
--- NOTE | 2017-04-11 10:01 | Progress Note ---
Assessment and Plan - Patient Problems (1) 37 weeks gestation of Current Visit: Yes Status: Acute Plan to address problem: S/P . (2) (normal spontaneous vaginal delivery) Current Visit: Yes Status: Acute (3) hemorrhage Current Visit: Yes Status: Acute Plan to address problem: Will continue to monitor vitals, H/H, coagulation profile, urine output. IV bolus ordered. (4) DIC (disseminated intravascular coagulation) Current Visit: Yes Status: Acute Plan to address problem: S/P 6 units of PRBCs and 1 FFP[address] in [address]. H/H has improved after transfusion. Bleeding is minimal at this time. Overall status improving. Will monitor coagulation profile, H/H, and renal function. Next labs to be drawn at 12 PM. (5) Oliguria Current Visit: Yes Status: Acute Plan to address problem: IV bolus ordered. Continue to monitor urine output. (6) Anemia Onset Date: ~04/10/17 Current Visit: Yes Status: Acute Qualifiers: Anemia type: other cause Subjective - Subjective Date of service: 04/11/17 Principal diagnosis: s/p with hemorrhage; s/p D&C Interval history: Patient is a 26 year old who is S/P yesterday afternoon. She was transferred to the floor where she began to have hemorrhage. On exam, the uterus was found to be atonic. IV pitocin, [place] cytotec, IM hemabate 4 doses were given. Bleeding continued despite those measures. She recieved 2 units of PRBCs and was taken to the OR for D&C. Scant amount of POCs were found. Blood loss was estimated to be 1500 cc. Bakri ballon was placed. Later on, she went into DIC. She was transfused with 6 units of PRBC and 1 FFP. Bleeding has decerased and Her H/H improved to 7.3/21.6 at 7 AM. BP is 90/60, HR is 115 bpm, urine output is <30cc/hr. Exam: Chest is clear B/L, uterus felt to firm. Ext: mild edema. Patient is alert, awake. oriented at this time. Bakri is scheduled to be removed at 12:30 PM today. CBC and CMP ordered. Objective - Vital Signs Latest vital signs: Vital Signs Temp Pulse Resp BP BP Pulse Ox 04/11/17 08:15 115 H 26 H 101/60 04/11/17 08:00 113 H 26 H 87/51 95 04/11/17 07:45 115 H 24 109/65 98 04/11/17 07:30 115 H 16 104/63 100 04/11/17 07:15 112 H 24 99/61 04/11/17 07:00 114 H 19 105/63 100 04/11/17 06:45 111 H 16 106/61 04/11/17 06:30 113 H 26 H 100/67 04/11/17 06:20 115 H 23 105/61 100 04/11/17 06:10 115 H 28 H 114/66 100 04/11/17 06:00 114 H 21 114/66 98 04/11/17 05:50 118 H 26 H 110/65 100 04/11/17 05:40 110 H 17 103/61 100 04/11/17 05:30 112 H 24 105/62 99 04/11/17 05:20 114 H 22 105/62 98 04/11/17 05:10 118 H 23 101/60 100 04/11/17 05:00 115 H 18 101/60 99 04/11/17 04:50 119 H 21 105/59 99 04/11/17 04:42 107 H 21 108/67 99 04/11/17 04:40 115 H 28 H 108/67 100 04/11/17 04:33 100 04/11/17 04:30 118 H 26 H 108/67 04/11/17 04:20 114 H 27 H 108/61 100 04/11/17 04:16 98.2 F 113 H 27 H 107/61 100 04/11/17 04:10 111 H 25 H 107/61 100 04/11/17 04:00 121 H 26 H 107/61 99 04/11/17 03:54 97.6 F 02 03:50 128 H 22 100/53 100 04/11/17 03:46 97.6 F 126 H 24 100/53 100 04/11/17 03:40 125 H 26 H 104/56 100 04/11/17 03:31 97.6 F 132 H 24 102/60 100 04/11/17 03:30 128 H 21 104/56 100 04/11/17 03:20 123 H 28 H 102/60 99 02//18 03:10 127 H 21 116/61 100 18 03:00 126 H 26 H 116/61 100 18 02:53 98.7 F 130 H 22 108/62 100 18 02:50 130 H 17 108/62 100 04/11/17 02:40 122 H 24 102/60 100 18 02:30 97.6 F 126 H 15 102/60 100 18 02:20 114 H 25 H 95/57 100 18 02:10 123 H 21 97/56 100 04/11/17 02:00 97.6 F 122 H 24 97/56 100 04/11/17 01:50 131 H 14 98/47 98 04/11/17 01:45 98.1 F 127 H 24 98/47 98 04/11/17 01:40 127 H 20 96/45 99 04/11/17 01:30 132 H 22 96/45 94 04/11/17 01:27 98.7 F 120 H 18 96/45 96 04/11/17 01:20 132 H 19 105/43 93 04/11/17 01:15 97.6 F 126 H 17 95/44 95 04/11/18 01:10 97.6 F 127 H 17 93/42 95 04/11/17 01:00 125 H 20 96/40 92 18 00:50 134 H 11 L 79/39 91 18 00:40 135 H 18 90/48 93 04/11/17 00:30 126 H 18 96/44 96 04/11/17 00:25 121 H 20 100/49 91 18 00:20 120 H 24 90/43 96 18 00:15 114 H 18 100/34 98 04/11/18 00:10 126 H 13 107/60 100 18 00:08 97.6 F 122 H 28 H 82/37 97 0222/18 23:50 107/60 0222/18 23:40 107/60 02/18 23:36 107/60 0222/18 21:50 102 H 19 107/60 04/10/18 21:40 99 H 16 106/53 100 18 21:30 95 H 23 105/56 02/22/18 21:24 98.2 F 97 H 19 103/54 100 04/10/17 21:20 98 H 24 106/53 100 04/10/17 21:10 97 H 26 H 96/60 04/10/17 21:09 98.7 F 112 H 20 96/60 04/10/17 21:00 113 H 17 93/40 100 04/10/17 20:50 91 H 27 H 04/10/17 20:40 94 H 21 93/43 04/10/17 20:26 73/33 04/10/17 20:17 117 H 18 69/31 04/10/17 20:10 105 H 20 71/28 04/10/17 17:37 97 H 98 04/10/17 17:32 90 98 04/10/17 17:27 98 H 98 04/10/17 17:22 92 H 98 04/10/17 17:17 92 H 98 04/10/17 17:12 90 98 04/10/17 17:07 91 H 98 04/10/17 17:02 94 H 99 04/10/17 16:57 99 H 98 04/10/17 16:52 97 H 98 04/10/17 16:47 95 H 98 04/10/17 16:42 94 H 98 04/10/17 16:37 99 H 98 04/10/17 16:35 96 H 97/48 04/10/17 16:32 102 H 98 04/10/17 16:26 118 H 99 04/10/17 13:17 81 117/63 Intake and Output 04/10/17 04/11/17 04/11/17 23:59 07:59 15:59 Intake Total 748 1441.667 Output Total 1000 Balance 748 441.667 Intake: IV 516.667 Lactated Ringers 1,000 ml 16.667 @ 125 mls/hr IV DIRECT LUCINA Rx#:[id number] Oral 120 Blood Product 748 805 Fresh Frozen Plasma 305 Thawed Unit [id number] Leukoreduced Red Blood 248 Cells Unit [id number] Leukoreduced Red Blood 250 Cells Unit [id number] Leukoreduced Red Blood 250 Cells Unit [id number] Leukoreduced Red Blood 250 Cells Unit [id number] Leukoreduced Red Blood 250 Cells Unit [id number] Output: Drainage 450 Urine 450 Void 100 Other 100 Other: Total, Intake Amount 120 Total, Output Amount 200 Voiding Method Indwelling Catheter Estimated Blood Loss 200 - Exam Narrative Exam: Chest: CTA B/L. Abd: soft, NT, uterus with bakri felt to be firm. Perineum: scant amout of blood. Ext: mild edema, no calf TN, no Carin's sign. Venodynes boots in place. Cardiovascular: Present: Normal S1, Normal S2 Lungs: Present: Clear to auscultation Vulva: both: normal Deep Tendon Reflex Grade: Normal +2 - Labs Labs: Abnormal lab results 04/08/17 04/10/17 04/10/17 Range/Units 12:15 00:37 20:50 Hgb 6.7 L (10.1-14.3) gm/dl Hct 22.1 L (30.3-42.9) % PT (12.2-14.9) Sec. INR (0.87-1.13) APTT (24.2-36.6) Sec. Fibrinogen (211-480) mg/dl D-Dimer > 76739 H (0-234) ng/mlDDU POC ABG pCO2 (35-45) POC ABG pO2 (80-105) Crossmatch See Detail 04/10/17 04/10/17 04/11/17 Range/Units 21:48 23:20 07:48 Hgb 7.3 L (10.1-14.3) gm/dl Hct 21.6 L (30.3-42.9) % PT 37.0 H (12.2-14.9) Sec. INR 3.43 H (0.87-1.13) APTT 70.4 H* (24.2-36.6) Sec. Fibrinogen 60 L* (211-480) mg/dl D-Dimer (0-234) ng/mlDDU POC ABG pCO2 27.3 L (35-45) POC ABG pO2 341 H (80-105) Crossmatch
[2017-04-11 13:05] LABS: Hemoglobin 6.4 gm/dl (10.1-14.3); Mean Corpuscular HGB Conc 33 % (30-34); Mean Corpuscular Hemoglobin 27 pg (28-32); Mean Corpuscular Volume 83 fl (79-97); Platelet Count 122 K/mm3 (140-440); Red Blood Count 2.37 M/mm3 (3.65-5.03); Red Cell Distribution Width 18.3 % (13.2-15.2)
--- NOTE | 2017-04-11 13:05 | Event Note ---
Date: 04/11/17 Bakri balloon removed without difficulty. Vaginal bleeding is scant. Will continue to observe
--- NOTE | 2017-04-11 13:07 | Consultation ---
History of Present Illness Consult date: 04/11/17 Requesting physician: GOVIND HOYOS Reason for consult: other (Severe Symptomatic Anemia (ABLA) post-op) History of present illness: PULMONARY/CCM CONSULT NOTE (Full dictation # [id number]) Please see dictated notes for full details Medications and Allergies Allergies Allergy/AdvReac Type Severity Reaction Status Date / Time No Known Allergies Allergy Unverified 04/08/17 09:27 Home Medications Medication Instructions Recorded Confirmed Last Taken Type Children's Ferrous Sulfate 56 mg PO DAILY 04/08/17 04/08/17 04/07/17 08:00 History Vit No.129/Iron/Folic 1 tab PO BID 04/08/17 04/08/17 04/07/17 18:00 History [ One Daily Tablet] Active Meds: Active Medications Acetaminophen (Tylenol) 650 mg MT Q4H PRN PRN Reason: Pain, Mild (1-3) Acetaminophen/Hydrocodone Bitart ([place] 5/325) 2 each PO Q6H PRN PRN Reason: Pain, Moderate (4-6) Lactated Ringer's (Lactated Ringers) 1,000 mls @ 125 mls/hr IV DIRECT LUCINA Last Admin: 04/11/17 05:37 Dose: 125 mls/hr Ibuprofen (Motrin) 600 mg PO Q6H LUCINA Last Admin: 04/11/17 11:20 Dose: Not Given Magnesium Hydroxide (Milk Of Magnesia) 30 ml PO HS PRN PRN Reason: Constipation Sodium Chloride (Sodium Chloride Flush Syringe 10 Ml) 10 ml IV PRN NR Stop: 04/11/17 16:59 Physical Examination Vital signs: Vital Signs Pulse BP 88 91/54 04/08/17 09:39 04/08/17 09:39 Results - Laboratory Findings CBC and BMP: 04/11/17 12:48 04/11/17 13:39 ABG POC ABG pH 7.391 (7.35-7.45) 04/10/17 21:48 POC ABG pCO2 27.3 (35-45) L 04/10/17 21:48 POC ABG pO2 341 (80-105) H 04/10/17 21:48 POC ABG HCO3 16.6 04/10/17 21:48 POC ABG Total CO2 17 04/10/17 21:48 POC ABG O2 Sat 100 04/10/17 21:48 PT/INR, D-dimer PT 37.0 Sec. (12.2-14.9) H 04/10/17 23:20 INR 3.43 (0.87-1.13) H 04/10/17 23:20 D-Dimer > 88482 ng/mlDDU (0-234) H 04/10/17 00:37 Abnormal lab findings: Abnormal Labs 04/08/17 04/08/17 04/08/17 09:45 12:15 22:39 RBC 3.59 L Hgb 6.4 L 8.1 L Hct 20.5 L 25.3 L MCV 71 L MCH 23 L RDW 20.6 H PT INR APTT Fibrinogen D-Dimer POC ABG pCO2 POC ABG pO2 Crossmatch See Detail 04/10/17 04/10/17 04/10/17 00:37 20:50 21:48 RBC Hgb 6.7 L Hct 22.1 L MCV MCH RDW PT INR APTT Fibrinogen D-Dimer > 80025 H POC ABG pCO2 27.3 L POC ABG pO2 341 H Crossmatch 04/10/17 04/11/17 23:20 07:48 RBC Hgb 7.3 L Hct 21.6 L MCV MCH RDW PT 37.0 H INR 3.43 H APTT 70.4 H* Fibrinogen 60 L* D-Dimer POC ABG pCO2 POC ABG pO2 Crossmatch
[2017-04-11 13:14] LABS: Hematocrit 19.7 % (30.3-42.9)
[2017-04-11 13:19] LABS: BUN/Creatinine Ratio 8; Blood Urea Nitrogen 4 mg/dL (7-17); Calcium 6.9 mg/dL (8.4-10.2); Hemolysis Index 7
[2017-04-11] MEDS ORDERED: NACL 0.9% 500 ML 500 ML IV NR (13:47)
[2017-04-11] MEDS ORDERED: BENADRYL IV ONE (13:49)
[2017-04-11] MEDS ORDERED: TYLENOL PO ONE (13:49)
[2017-04-11] MEDS ORDERED: ceFAZolin 2 GM in NACL 0.9% 100 ML IV ONE (13:49)
[2017-04-11 14:09] LABS: Albumin 1.7 g/dL (3.9-5); BUN/Creatinine Ratio 7; Blood Urea Nitrogen 4 mg/dL (7-17); Calcium 6.9 mg/dL (8.4-10.2); Hemolysis Index 4
[2017-04-11 14:10] LABS: Alanine Aminotransferase < 5 units/L (7-56)
[2017-04-11] MEDS ORDERED: ANCEF/STERILE WATER 2 GM/20 ML 2 GM/20 ML SYRINGE IV ONE (16:00)
--- NOTE | 2017-04-11 17:52 | Progress Note ---
Assessment and Plan A: S/P with hemorrhage - improved s/p D&C and placement of Bakri Balloon Acute blood loss anemia - s/p 8 units PRBC Coagulation defects - DIC - improving after 1 unit FFP P: Will continue present management in ICU Repeat coagulation profile in the AM Possible transfer to the floor tomorrow if remains stable - Patient Problems (1) hemorrhage Current Visit: Yes Status: Acute (2) DIC (disseminated intravascular coagulation) Current Visit: Yes Status: Acute Subjective - Subjective Date of service: 04/11/17 Principal diagnosis: s/p with hemorrhage; s/p D&C Interval history: Patient seen, stable. s/p removal of Bakri balloon with reduction in VB. She is still anemic and is about to complete her 2nd unit of PRBC She is AAOx3 and appears in no acute distress Patient reports: appetite normal, voiding normally : doing well Objective - Vital Signs Latest vital signs: Vital Signs Temp Pulse Pulse Resp BP BP Pulse Ox 04/11/17 17:44 98.2 F 99 H 26 H 89/56 96 04/11/17 17:06 25 H 04/11/17 16:00 25 H 100 04/11/17 15:00 102 H 25 H 109/50 99 04/11/17 14:30 99 H 23 101/47 04/11/17 14:00 101 H 24 108/53 04/11/17 13:30 103 H 26 H 113/53 99 04/11/17 13:00 102 H 25 H 105/49 100 04/11/17 12:30 110 H 20 99/55 04/11/17 12:14 107 H 22 99 04/11/17 12:00 99.1 F 109 H 25 H 98/65 100 04/11/17 11:30 117 H 29 H 103/58 100 04/11/17 11:20 24 04/11/17 11:00 113 H 20 110/56 100 04/11/17 10:30 111 H 19 97/55 04/11/17 10:00 107 H 22 99/53 04/11/17 09:30 109 H 20 99/60 04/11/17 09:00 113 H 29 H 98/56 100 04/11/17 08:30 113 H 26 H 100/61 04/11/17 08:15 115 H 26 H 101/60 04/11/17 08:00 99.4 F 113 H 114 H 24 87/51 98 04/11/17 07:45 115 H 24 109/65 98 04/11/17 07:30 115 H 16 104/63 100 04/11/17 07:15 112 H 24 99/61 04/11/17 07:00 114 H 19 105/63 100 04/11/17 06:45 111 H 16 106/61 02 06:30 113 H 26 H 100/67 04/11/17 06:20 115 H 23 105/61 100 04/11/17 06:10 115 H 28 H 114/66 100 04/11/17 06:00 114 H 21 114/66 98 04/11/17 05:50 118 H 26 H 110/65 100 04/11/17 05:40 110 H 17 103/61 100 04/11/17 05:30 112 H 24 105/62 99 04/11/17 05:20 114 H 22 105/62 98 04/11/17 05:10 118 H 23 101/60 100 04/11/17 05:00 115 H 18 101/60 99 04/11/17 04:50 119 H 21 105/59 99 04/11/17 04:42 107 H 21 108/67 99 04/11/17 04:40 115 H 28 H 108/67 100 04/11/17 04:33 100 04/11/17 04:30 118 H 26 H 108/67 04/11/17 04:20 114 H 27 H 108/61 100 04/11/17 04:16 98.2 F 113 H 27 H 107/61 100 04/11/17 04:10 111 H 25 H 107/61 100 04/11/17 04:00 121 H 26 H 107/61 99 04/11/17 03:54 97.6 F 02 03:50 128 H 22 100/53 100 04/11/17 03:46 97.6 F 126 H 24 100/53 100 18 03:40 125 H 26 H 104/56 100 04/11/17 03:31 97.6 F 132 H 24 102/60 100 18 03:30 128 H 21 104/56 100 04/11/17 03:20 123 H 28 H 102/60 99 04/11/17 03:10 127 H 21 116/61 100 04/11/17 03:00 126 H 26 H 116/61 100 04/11/17 02:53 98.7 F 130 H 22 108/62 100 04/11/17 02:50 130 H 17 108/62 100 04/11/17 02:40 122 H 24 102/60 100 04/11/17 02:30 97.6 F 126 H 15 102/60 100 04/11/17 02:20 114 H 25 H 95/57 100 04/11/17 02:10 123 H 21 97/56 100 04/11/17 02:00 97.6 F 122 H 24 97/56 100 04/11/17 01:50 131 H 14 98/47 98 04/11/17 01:45 98.1 F 127 H 24 98/47 98 04/11/17 01:40 127 H 20 96/45 99 04/11/17 01:30 132 H 22 96/45 94 04/11/17 01:27 98.7 F 120 H 18 96/45 96 04/11/17 01:20 132 H 19 105/43 93 04/11/17 01:15 97.6 F 126 H 17 95/44 95 04/11/ 01:10 97.6 F 127 H 17 93/42 95 04/11/17 01:00 125 H 20 96/40 92 04/11/17 00:50 134 H 11 L 79/39 91 04/11/17 00:40 135 H 18 90/48 93 04/11/17 00:30 126 H 18 96/44 96 04/11/17 00:25 121 H 20 100/49 91 04/11/17 00:20 120 H 24 90/43 96 18 00:15 114 H 18 100/34 98 18 00:10 126 H 13 107/60 100 04/11/17 00:08 97.6 F 122 H 28 H 82/37 97 0218 23:50 107/60 0222/18 23:40 107/60 0218 23:36 107/60 18 21:50 102 H 19 107/60 18 21:40 99 H 16 106/53 100 04/10/17 21:30 95 H 23 105/56 04/10/17 21:24 98.2 F 97 H 19 103/54 100 04/10/17 21:20 98 H 24 106/53 100 04/10/17 21:10 97 H 26 H 96/60 04/10/17 21:09 98.7 F 112 H 20 96/60 04/10/17 21:00 113 H 17 93/40 100 04/10/17 20:50 91 H 27 H 04/10/17 20:40 94 H 21 93/43 04/10/17 20:26 73/33 04/10/17 20:17 117 H 18 69/31 04/10/17 20:10 105 H 20 71/28 Intake and Output 04/11/17 04/11/17 04/11/17 07:59 15:59 23:59 Intake Total 3024.007 8995 0 Output Total 1000 Balance 834.091 2414 0 Intake: IV 147.662 6978 Lactated Ringers 1,000 ml 16.667 1000 @ 125 mls/hr IV DIRECT LUCINA Rx#:[id number] Oral 120 120 Blood Product 805 0 Fresh Frozen Plasma 305 Thawed Unit [id number] Leukoreduced Red Blood 250 Cells Unit [id number] Leukoreduced Red Blood 250 Cells Unit [id number] Leukoreduced Red Blood 0 Cells Unit [id number] Output: Drainage 450 Urine 450 Void 100 Other 100 Other: Total, Intake Amount 120 120 Total, Output Amount 200 Voiding Method Indwelling Catheter Indwelling Catheter Indwelling Catheter # Bowel Movements 1 - Exam Abdomen: Present: soft. Absent: tenderness, guarding Uterus: Present: firm, fundal height below umbilicus - Labs Labs: Abnormal lab results 04/08/17 04/10/17 04/10/17 Range/Units 12:15 00:37 20:50 WBC (4.5-11.0) K/mm3 RBC (3.65-5.03) M/mm3 Hgb 6.7 L (10.1-14.3) gm/dl Hct 22.1 L (30.3-42.9) % MCH (28-32) pg RDW (13.2-15.2) % Plt Count (140-440) K/mm3 PT (12.2-14.9) Sec. INR (0.87-1.13) APTT (24.2-36.6) Sec. Fibrinogen (211-480) mg/dl D-Dimer > 71455 H (0-234) ng/mlDDU POC ABG pCO2 (35-45) POC ABG pO2 (80-105) Chloride (98-107) mmol/L Carbon Dioxide (22-30) mmol/L BUN (7-17) mg/dL Creatinine (0.7-1.2) mg/dL Lactic Acid (0.7-2.0) mmol/L Calcium (8.4-10.2) mg/dL Magnesium (1.7-2.3) mg/dL ALT (7-56) units/L Total Protein (6.3-8.2) g/dL Albumin (3.9-5) g/dL Crossmatch See Detail 04/10/17 04/10/17 04/11/17 Range/Units 21:48 23:20 07:48 WBC (4.5-11.0) K/mm3 RBC (3.65-5.03) M/mm3 Hgb 7.3 L (10.1-14.3) gm/dl Hct 21.6 L (30.3-42.9) % MCH (28-32) pg RDW (13.2-15.2) % Plt Count (140-440) K/mm3 PT 37.0 H (12.2-14.9) Sec. INR 3.43 H (0.87-1.13) APTT 70.4 H* (24.2-36.6) Sec. Fibrinogen 60 L* (211-480) mg/dl D-Dimer (0-234) ng/mlDDU POC ABG pCO2 27.3 L (35-45) POC ABG pO2 341 H (80-105) Chloride (98-107) mmol/L Carbon Dioxide (22-30) mmol/L BUN (7-17) mg/dL Creatinine (0.7-1.2) mg/dL Lactic Acid (0.7-2.0) mmol/L Calcium (8.4-10.2) mg/dL Magnesium (1.7-2.3) mg/dL ALT (7-56) units/L Total Protein (6.3-8.2) g/dL Albumin (3.9-5) g/dL Crossmatch 04/11/17 04/11/17 04/11/17 Range/Units 12:48 12:48 13:37 WBC 26.2 H (4.5-11.0) K/mm3 RBC 2.37 L (3.65-5.03) M/mm3 Hgb 6.4 L (10.1-14.3) gm/dl Hct 19.7 L* (30.3-42.9) % MCH 27 L (28-32) pg RDW 18.3 H (13.2-15.2) % Plt Count 122 L (140-440) K/mm3 PT (12.2-14.9) Sec. INR (0.87-1.13) APTT (24.2-36.6) Sec. Fibrinogen (211-480) mg/dl D-Dimer (0-234) ng/mlDDU POC ABG pCO2 (35-45) POC ABG pO2 (80-105) Chloride 108.3 H (98-107) mmol/L Carbon Dioxide 16 L (22-30) mmol/L BUN 4 L (7-17) mg/dL Creatinine 0.5 L (0.7-1.2) mg/dL Lactic Acid 3.30 H* (0.7-2.0) mmol/L Calcium 6.9 L (8.4-10.2) mg/dL Magnesium (1.7-2.3) mg/dL ALT (7-56) units/L Total Protein (6.3-8.2) g/dL Albumin (3.9-5) g/dL Crossmatch 04/11/17 04/11/17 04/11/17 Range/Units 13:39 13:39 14:41 WBC (4.5-11.0) K/mm3 RBC (3.65-5.03) M/mm3 Hgb (10.1-14.3) gm/dl Hct (30.3-42.9) % MCH (28-32) pg RDW (13.2-15.2) % Plt Count (140-440) K/mm3 PT (12.2-14.9) Sec. INR (0.87-1.13) APTT (24.2-36.6) Sec. Fibrinogen (211-480) mg/dl D-Dimer (0-234) ng/mlDDU POC ABG pCO2 (35-45) POC ABG pO2 (80-105) Chloride 107.7 H (98-107) mmol/L Carbon Dioxide 18 L (22-30) mmol/L BUN 4 L (7-17) mg/dL Creatinine 0.6 L (0.7-1.2) mg/dL Lactic Acid 2.10 H* (0.7-2.0) mmol/L Calcium 6.9 L (8.4-10.2) mg/dL Magnesium 1.00 L (1.7-2.3) mg/dL ALT < 5 L (7-56) units/L Total Protein 3.4 L (6.3-8.2) g/dL Albumin 1.7 L (3.9-5) g/dL Crossmatch 04/11/17 Range/Units 14:46 WBC (4.5-11.0) K/mm3 RBC (3.65-5.03) M/mm3 Hgb (10.1-14.3) gm/dl Hct (30.3-42.9) % MCH (28-32) pg RDW (13.2-15.2) % Plt Count (140-440) K/mm3 PT (12.2-14.9) Sec. INR (0.87-1.13) APTT (24.2-36.6) Sec. Fibrinogen (211-480) mg/dl D-Dimer (0-234) ng/mlDDU POC ABG pCO2 (35-45) POC ABG pO2 (80-105) Chloride (98-107) mmol/L Carbon Dioxide (22-30) mmol/L BUN (7-17) mg/dL Creatinine (0.7-1.2) mg/dL Lactic Acid (0.7-2.0) mmol/L Calcium (8.4-10.2) mg/dL Magnesium (1.7-2.3) mg/dL ALT (7-56) units/L Total Protein (6.3-8.2) g/dL Albumin (3.9-5) g/dL Crossmatch See Detail
[2017-04-11] MEDS ORDERED: ANCEF/NS 1 GM/50 ML 1 GM/50 ML BAG IV SCH (22:00)
[2017-04-11] MEDS: ceFAZolin 1 GM in NACL 0.9% 20 ML IV SCH (22:29)
[2017-04-12 03:46] LABS: Mean Corpuscular HGB Conc 34 % (30-34); Mean Corpuscular Hemoglobin 28 pg (28-32); Mean Corpuscular Volume 82 fl (79-97); Platelet Count 133 K/mm3 (140-440); Red Blood Count 2.56 M/mm3 (3.65-5.03)
[2017-04-12 03:59] LABS: BUN/Creatinine Ratio 8; Blood Urea Nitrogen 5 mg/dL (7-17); Calcium 6.9 mg/dL (8.4-10.2); Hemolysis Index 20
[2017-04-12 04:10] LABS: INR 1.17 (0.87-1.13)
[2017-04-12 04:11] LABS: Partial Thromboplastin Time 29.6 Sec. (24.2-36.6)
--- NOTE | 2017-04-12 04:45 | Consultation ---
CONSULTING PHYSICIAN: Dr. Juarez Shipley. REASON FOR CONSULTATION: Acute blood loss anemia, symptomatic. CHIEF COMPLAINT AND HISTORY OF PRESENT ILLNESS: The patient is a 26-year-old 4, para 3-0-0-3. Last menstrual period of 07/21/2016, who came in due to anemia. She has a 36 or 37 week old . Hemoglobin was 9.7 at initial visit, it decreased to 6.9. She had been taking iron therapy, developed lightheadedness. On the day of presentation, she was sent to the ER for evaluation on the day before, but refused. A decision was made to go ahead and induce labor. She ultimately delivered a well child; however, she developed hemorrhage initially during the delivery just about 200 mL; however, she lost about 1-1/2 liters of blood. She required a dilatation and curretage as well as placement of a Bakri balloon. She became symptomatic, tachycardic, relatively hypotensive. She was brought into the ICU at that point. I did discuss with the surgeon and instructions were given to the nursing staff. Hemoglobin dropped as low as 6.4. When I stopped by to see her, she was resting in bed. She was following commands, answering all my questions. Denied any significant uncontrolled pain. Denied abdominal pain, nausea. Denied active vaginal bleeding. This really is as much of the history of presentation as I have. Of note, she denies any prior history of tobacco use, any history of asthma, COPD, or other pulmonary problem. PAST MEDICAL HISTORY: Anemia. PAST SURGICAL HISTORY: None. MEDICATIONS: She was on at the time I stopped by to see were reviewed included cefazolin 1 g IV q.8 hours, Reinbeck 5/325 two tablets p.o. q.6 hours p.r.n. moderate pain, Motrin 600 mg p.o. q.6 hours scheduled. She was on lactated Ringer's at 125 mL an hour, p.r.n. milk of magnesia. ALLERGIES: No known drug allergies. DIET: Well-built, slightly obese, but gained appropriate weight during the . Denies acute weight loss or gain, otherwise. FAMILY AND SOCIAL HISTORY: Apparently lives in the family in the community. She is . Denied alcohol, tobacco, or illicit drug use or abuse. Family history, social history otherwise unknown. REVIEW OF SYSTEMS: Obtained. No loss of consciousness. No new onset seizures. No new onset focal weakness. No gross hematochezia or melena. No gross hematuria. She had vaginal bleeding, hemorrhage. Complete 13-system review of systems obtained. Pertinent positives and/or negatives as in body of history above, otherwise they are noncontributory. PHYSICAL EXAMINATION: VITAL SIGNS: On examination at presentation and since she has been afebrile, most recent temperature at the time of my evaluation were 99.4 degrees Fahrenheit orally, pulse of 115, respiratory rate of 24, blood pressure 101/60, oxygen sats 98%. She was on room air at the time I saw her. GENERAL: Young -Liber[place] female, looks her stated age, normocephalic, atraumatic, talking to me in full sentences and at worst mild respiratory distress. HEENT: Examination of the head, eyes, ears, nose and throat anicteric, no conjunctival erythema. Oropharynx is a Mallampati #2, no thyromegaly, no jugular venous distention. LUNGS: Auscultation of both lung patel was unremarkable. Lungs were clear bilaterally. HEART: Sounds 1 and 2 are heard. They were regular rate and rhythm, regular tachycardia at the time of my evaluation. ABDOMEN: Soft. Bowel sounds are positive, mildly tender. No palpable hepatosplenomegaly. It was distended appropriately. EXTREMITIES: Were without overt digital clubbing, cyanosis, no pedal edema. NEUROLOGIC: The pupils were equal, round, about 4 mm, reactive to light. Extraocular muscle movements are intact. She moves all 4 extremities spontaneously. LABORATORY DATA: From my review. Hemoglobin was 7.3, hematocrit was 21.6. INR was 3.43 yesterday. Serum sodium was 138, potassium 3.9, chloride 108, bicarbonate 18, BUN 4, creatinine 0.6, glucose was 96. Lactic acid level was elevated at 2.1. Phosphorus 2.9, magnesium was low at 1.0. No microbiology studies. No radio imaging. No chest x-ray. She has received a total of I believe about 5 units of packed red cell in all and also received 1 unit of FFPs. ASSESSMENT: 1. Acute blood loss anemia, symptomatic. 2. hemorrhage. 3. Delivery of a live child at I believe 37 weeks of gestation. 4. History of anemia. PLAN: 1. We will continue serial hemoglobin and hematocrits. 2. I will repeat an INR and transfuse fresh frozen plasma as necessary. 3. If she continues to lose blood, we will give her extra blood. If we do get over 8 to 10 packed red cells threshold, I will give platelets along with that. Supplemental oxygen will be given as necessary to keep sats greater than about 90%. Aspiration precautions will be maintained. Serial hemoglobin and hematocrit demonstrates she is still in relatively unstable. We will continue to watch her in the Intensive Care Unit. I will put her on gastrointestinal prophylaxis. Flu and pneumonia vaccination will be per protocol. Thank you very much for the consult, Dr. Shipley. We will follow along and make further recommendations as picture progresses/becomes clearer. JOB# [id number] WILLIAM/KAREN [place]
--- NOTE | 2017-04-12 07:00 | Ultrasound Report ---
FINAL REPORT EXAM: US GUIDE INTRAOPERATIVE HISTORY: Backri balloon placement COMPARISONS: None. FINDINGS: Procedural grayscale and color Doppler ultrasound for intrauterine balloon placement A small volume of fluid and air are seen within the endometrium. Anechoic fluid distending the endocervical canal measures 7.5 x 6.2 cm. The balloon is not seen within the endometrium on this examination. IMPRESSION: This examination was obtained on 04/10/2017 but not submitted for interpretation until 04/12/2017. The balloon is not seen within the endometrium on the provided images. Anechoic fluid within the cervix measuring 7.5 x 6.2 cm may be a hematoma or the balloon inflated within the endocervical canal. Dr. Cote discussed findings with Nurse Shalonda Worthington at 0551 central Time on 04/12/2017 at the time of interpretation.
[2017-04-12] MEDS: MOTRIN PO SCH ×4 (07:12→16:53)
[2017-04-12] MEDS ORDERED: NACL 0.9% 500 ML 500 ML IV ONE (08:11)
--- NOTE | 2017-04-12 08:11 | Progress Note ---
Assessment and Plan A: S/P with hemorrhage - improved s/p D&C and placement of Bakri Balloon Acute blood loss anemia - s/p 8 units PRBC Coagulation defects - DIC - improving after 1 unit FFP P: -Will transfuse 2 more units packed red blood cells. -Will encourage ambulation at this time -Will allow patient to eat -Possible transfer from the unit if deemed stable by ICU attending - Patient Problems (1) hemorrhage Current Visit: Yes Status: Acute (2) DIC (disseminated intravascular coagulation) Current Visit: Yes Status: Acute Subjective - Subjective Date of service: 04/12/17 Principal diagnosis: s/p with hemorrhage; s/p D&C Interval history: Patient seen, stable. No ssues reported overnight. She is still anemic despite completing 2nd unit of PRBC last night. Her hemoglobin was ~ 6 but is ~ 7 this AM after the 2 units. Her DIC indicis however, has improved and her white count has reduced. I see no evidence of active bleeding, pad is dry. She has excellent urine output. Her vitals are stable She is AAOx3 and appears in no acute distress Patient reports: appetite normal, voiding normally, pain well controlled, no ambulating normally (has not yet ambulated), no nauseated Objective - Vital Signs Latest vital signs: Vital Signs Temp Pulse Pulse Resp BP Pulse Ox 04/12/17 06:00 72 22 94/53 100 04/12/17 05:30 80 20 97/54 04/12/17 05:06 98.5 F 04/12/17 05:00 81 25 H 105/59 97 04/12/17 04:30 71 20 100/55 04/12/17 04:00 75 21 102/54 100 04/12/17 03:30 78 25 H 101/56 100 04/12/17 03:04 98.0 F 04/12/17 03:00 76 19 96/48 97 04/12/17 02:30 76 18 98/53 98 04/12/17 02:00 77 23 104/53 98 04/12/17 01:30 76 18 96/47 97 04/12/17 01:00 83 20 98/54 97 04/12/17 00:44 98.0 F 74 20 102/53 98 04/12/17 00:30 79 22 102/53 04/12/17 00:00 88 19 93/45 98 0218 23:38 98.0 F 84 20 100/52 100 0218 23:30 79 19 93/44 98 18 23:00 84 21 102/49 97 18 22:30 87 21 104/61 100 04/11/17 22:00 108 H 20 98/54 100 18 21:30 100 H 15 101/57 100 04/11/17 21:23 98.0 F 86 23 98/54 100 18 21:06 98.4 F 83 19 92/47 100 04/11/17 21:02 98.4 F 02 21:00 84 20 92/47 02 20:30 89 19 90/43 99 04/11/17 20:00 78 20 99/44 99 04/11/17 19:40 88 20 92/46 98 04/11/17 19:30 93 H 22 92/46 100 04/11/17 19:29 98.2 F 87 18 92/47 100 04/11/17 19:00 97 H 19 90/60 100 04/11/17 18:59 98.5 F 99 H 21 92/47 100 04/11/17 18:30 107 H 28 H 90/60 99 18 18:29 99.5 F 95 H 25 H 90/60 100 18 18:00 102 H 25 H 87/54 18 17:59 99.1 F 101 H 23 87/54 99 18 17:44 98.2 F 99 H 26 H 89/56 96 18 17:30 96 H 24 95/51 18 17:06 25 H 18 17:00 104 H 31 H 97/50 18 16:30 111 H 26 H 90/55 100 18 16:00 101 H 26 H 92/49 100 18 15:30 101 H 26 H 103/51 18 15:00 102 H 25 H 109/50 99 04/11/18 14:30 99 H 23 101/47 04/11/17 14:00 101 H 24 108/53 04/11/17 13:30 103 H 26 H 113/53 99 02/23/18 13:00 102 H 25 H 105/49 100 04/11/17 12:30 110 H 20 99/55 04/11/17 12:14 107 H 22 99 04/11/17 12:00 99.1 F 109 H 25 H 98/65 100 04/11/17 11:30 117 H 29 H 103/58 100 04/11/17 11:20 24 04/11/17 11:00 113 H 20 110/56 100 04/11/17 10:30 111 H 19 97/55 04/11/17 10:00 107 H 22 99/53 04/11/17 09:30 109 H 20 99/60 04/11/17 09:00 113 H 29 H 98/56 100 04/11/17 08:30 113 H 26 H 100/61 04/11/17 08:15 115 H 26 H 101/60 Intake and Output 04/11/17 04/12/17 04/12/17 23:59 07:59 15:59 Intake Total 912.5 0 Balance 912.5 0 Intake: IV 662.5 Lactated Ringers 1,000 ml 662.5 @ 125 mls/hr IV DIRECT [facility] Rx#:[id number] Blood Product 250 Leukoreduced Red Blood 0 Cells Unit [id number] Leukoreduced Red Blood 250 Cells Unit [id number] Other 0 Leukoreduced Red Blood 0 Cells Unit [id number] Other: Voiding Method Indwelling Catheter - Exam Cardiovascular: Present: Regular rate, Normal S1, Normal S2 Lungs: Present: Clear to auscultation, Normal air movement Abdomen: Present: normal appearance, soft, normal bowel sounds. Absent: distention, tenderness, guarding, rigidity Uterus: Present: firm, fundal height below umbilicus Extremities: Present: normal - Labs Labs: Abnormal lab results 04/08/17 04/11/17 04/11/17 Range/Units 12:15 12:48 12:48 WBC 26.2 H (4.5-11.0) K/mm3 RBC 2.37 L (3.65-5.03) M/mm3 Hgb 6.4 L (10.1-14.3) gm/dl Hct 19.7 L* (30.3-42.9) % MCH 27 L (28-32) pg RDW 18.3 H (13.2-15.2) % Plt Count 122 L (140-440) K/mm3 PT (12.2-14.9) Sec. INR (0.87-1.13) Chloride 108.3 H (98-107) mmol/L Carbon Dioxide 16 L (22-30) mmol/L BUN 4 L (7-17) mg/dL Creatinine 0.5 L (0.7-1.2) mg/dL Lactic Acid (0.7-2.0) mmol/L Calcium 6.9 L (8.4-10.2) mg/dL Magnesium (1.7-2.3) mg/dL ALT (7-56) units/L Total Protein (6.3-8.2) g/dL Albumin (3.9-5) g/dL Crossmatch See Detail 04/11/17 04/11/17 04/11/17 Range/Units 13:37 13:39 13:39 WBC (4.5-11.0) K/mm3 RBC (3.65-5.03) M/mm3 Hgb (10.1-14.3) gm/dl Hct (30.3-42.9) % MCH (28-32) pg RDW (13.2-15.2) % Plt Count (140-440) K/mm3 PT (12.2-14.9) Sec. INR (0.87-1.13) Chloride 107.7 H (98-107) mmol/L Carbon Dioxide 18 L (22-30) mmol/L BUN 4 L (7-17) mg/dL Creatinine 0.6 L (0.7-1.2) mg/dL Lactic Acid 3.30 H* (0.7-2.0) mmol/L Calcium 6.9 L (8.4-10.2) mg/dL Magnesium 1.00 L (1.7-2.3) mg/dL ALT < 5 L (7-56) units/L Total Protein 3.4 L (6.3-8.2) g/dL Albumin 1.7 L (3.9-5) g/dL Crossmatch 04/11/17 04/11/17 04/12/17 Range/Units 14:41 14:46 03:35 WBC 18.9 H (4.5-11.0) K/mm3 RBC 2.56 L (3.65-5.03) M/mm3 Hgb 7.0 L (10.1-14.3) gm/dl Hct 21.0 L (30.3-42.9) % MCH (28-32) pg RDW 17.0 H (13.2-15.2) % Plt Count 133 L (140-440) K/mm3 PT (12.2-14.9) Sec. INR (0.87-1.13) Chloride (98-107) mmol/L Carbon Dioxide (22-30) mmol/L BUN (7-17) mg/dL Creatinine (0.7-1.2) mg/dL Lactic Acid 2.10 H* (0.7-2.0) mmol/L Calcium (8.4-10.2) mg/dL Magnesium (1.7-2.3) mg/dL ALT (7-56) units/L Total Protein (6.3-8.2) g/dL Albumin (3.9-5) g/dL Crossmatch See Detail 04/12/17 04/12/17 Range/Units 03:35 03:35 WBC (4.5-11.0) K/mm3 RBC (3.65-5.03) M/mm3 Hgb (10.1-14.3) gm/dl Hct (30.3-42.9) % MCH (28-32) pg RDW (13.2-15.2) % Plt Count (140-440) K/mm3 PT 15.5 H (12.2-14.9) Sec. INR 1.17 H (0.87-1.13) Chloride 109.8 H (98-107) mmol/L Carbon Dioxide 21 L (22-30) mmol/L BUN 5 L (7-17) mg/dL Creatinine 0.6 L (0.7-1.2) mg/dL Lactic Acid (0.7-2.0) mmol/L Calcium 6.9 L (8.4-10.2) mg/dL Magnesium (1.7-2.3) mg/dL ALT (7-56) units/L Total Protein (6.3-8.2) g/dL Albumin (3.9-5) g/dL Crossmatch
[2017-04-12] MEDS: ceFAZolin 1 GM in NACL 0.9% 20 ML IV SCH ×2 (08:26→16:51)
[2017-04-12] MEDS ORDERED: NACL 0.9% 500 ML 500 ML ONE (13:25)
--- NOTE | 2017-04-12 15:32 | Progress Note ---
Assessment and Plan Acute blood loss anemia, symptomatic. hemorrhage. Delivery of a live child at I believe 37 weeks of gestation. History of anemia - get repeat lactic acid level - complete PRBC transfusion - prn analgesia - PT/OT as tolereated - transfer back to mother baby unit ...35' Subjective Date of service: 04/12/17 Principal diagnosis: Acute blood loss anemia (symptomatic); Post Hemorrhage Interval history: Patient seen today for: Acute blood loss anemia (symptomatic); Post Hemorrhage Seen and examined at bedside; 24 hour events reviewed; nursing and respiratory care staff consulted; no adverse overnight events reported to me; resting peacefully in chair; went to see her baby today; walked in [place] without dizziness or SOB; No n/V/F/C Objective Vital Signs - 12hr 04/12/17 04/12/17 04/12/17 03:30 04:00 04:30 Temperature Pulse Rate 78 75 71 Respiratory 25 H 21 20 Rate Blood Pressure 101/56 102/54 100/55 O2 Sat by Pulse 100 100 Oximetry 04/12/17 04/12/17 04/12/17 05:00 05:06 05:30 Temperature 98.5 F Pulse Rate 81 80 Respiratory 25 H 20 Rate Blood Pressure 105/59 97/54 O2 Sat by Pulse 97 Oximetry 04/12/17 04/12/17 04/12/17 06:00 06:30 07:00 Temperature Pulse Rate 72 76 70 Respiratory 22 22 22 Rate Blood Pressure 94/53 101/60 98/61 O2 Sat by Pulse 100 99 Oximetry 04/12/17 04/12/17 04/12/17 07:30 08:00 08:30 Temperature 97.9 F Pulse Rate 74 75 93 H Respiratory 20 25 H 15 Rate Blood Pressure 106/66 106/64 106/66 O2 Sat by Pulse 99 Oximetry 04/12/17 04/12/17 04/12/17 09:00 09:30 10:00 Temperature Pulse Rate 107 H 104 H 96 H Respiratory 14 22 20 Rate Blood Pressure 106/64 106/64 106/64 O2 Sat by Pulse 100 100 100 Oximetry 04/12/17 04/12/17 04/12/17 10:30 11:00 11:30 Temperature Pulse Rate 91 H 93 H 96 H Respiratory 28 H 24 19 Rate Blood Pressure 107/60 106/61 106/61 O2 Sat by Pulse 99 100 Oximetry 04/12/17 04/12/17 04/12/17 12:00 12:17 12:40 Temperature 98.1 F Pulse Rate 93 H 88 Respiratory 23 24 Rate Blood Pressure 106/65 O2 Sat by Pulse 100 99 Oximetry 04/12/17 04/12/17 04/12/17 12:50 13:00 13:10 Temperature Pulse Rate 85 88 85 Respiratory 21 16 21 Rate Blood Pressure 106/61 O2 Sat by Pulse 98 99 99 Oximetry 04/12/17 04/12/17 04/12/17 13:20 13:30 13:40 Temperature 98.7 F Pulse Rate 94 H 92 H 92 H Respiratory 12 14 23 Rate Blood Pressure 106/61 106/61 101/64 O2 Sat by Pulse 100 100 100 Oximetry 04/12/17 04/12/17 04/12/17 13:50 13:56 14:00 Temperature 98.8 F Pulse Rate 90 85 Respiratory 19 14 Rate Blood Pressure 101/64 116/67 O2 Sat by Pulse 100 100 Oximetry 04/12/17 04/12/17 04/12/17 14:30 15:00 15:10 Temperature Pulse Rate 91 H 87 74 Respiratory 15 13 21 Rate Blood Pressure 116/67 105/68 105/68 O2 Sat by Pulse 100 100 100 Oximetry 04/12/17 04/12/17 15:14 15:20 Temperature 98.9 F Pulse Rate 84 Respiratory 17 Rate Blood Pressure 105/68 O2 Sat by Pulse 100 Oximetry Constitutional: no acute distress, alert Eyes: non-icteric ENT: oropharynx moist Neck: supple, no lymphadenopathy, no JVD Effort: normal Ascultation: Bilateral: clear Percussion: Bilateral: not dull Cardiovascular: regular rate and rhythm, other (no rubs or murmurs) Gastrointestinal: normoactive bowel sounds, soft, non-tender, other (distended post ) Integumentary: normal Extremities: no cyanosis, no edema, pulses normal, no ischemia or petechiae Neurologic: normal mental status, non-focal exam, pupils equal and round, motor strength normal and Psychiatric: mood appropriate, affect normal CBC and BMP: 04/12/17 03:35 04/12/17 03:35 ABG, PT/INR, D-dimer: ABG POC ABG pH 7.391 (7.35-7.45) 04/10/17 21:48 POC ABG pCO2 27.3 (35-45) L 04/10/17 21:48 POC ABG pO2 341 (80-105) H 04/10/17 21:48 POC ABG HCO3 16.6 04/10/17 21:48 POC ABG Total CO2 17 04/10/17 21:48 POC ABG O2 Sat 100 04/10/17 21:48 PT/INR, D-dimer PT 15.5 Sec. (12.2-14.9) H 04/12/17 03:35 INR 1.17 (0.87-1.13) H 04/12/17 03:35 D-Dimer > 42384 ng/mlDDU (0-234) H 04/10/17 00:37 Abnormal lab findings: Abnormal Labs 04/08/17 04/08/17 04/08/17 09:45 12:15 22:39 WBC RBC 3.59 L Hgb 6.4 L 8.1 L Hct 20.5 L 25.3 L MCV 71 L MCH 23 L RDW 20.6 H Plt Count PT INR APTT Fibrinogen D-Dimer POC ABG pCO2 POC ABG pO2 Chloride Carbon Dioxide BUN Creatinine Lactic Acid Calcium Magnesium ALT Total Protein Albumin Crossmatch See Detail 04/10/17 04/10/17 04/10/17 00:37 20:50 21:48 WBC RBC Hgb 6.7 L Hct 22.1 L MCV MCH RDW Plt Count PT INR APTT Fibrinogen D-Dimer > 93775 H POC ABG pCO2 27.3 L POC ABG pO2 341 H Chloride Carbon Dioxide BUN Creatinine Lactic Acid Calcium Magnesium ALT Total Protein Albumin Crossmatch 04/10/17 04/11/17 04/11/17 23:20 07:48 12:48 WBC 26.2 H RBC 2.37 L Hgb 7.3 L 6.4 L Hct 21.6 L 19.7 L* MCV MCH 27 L RDW 18.3 H Plt Count 122 L PT 37.0 H INR 3.43 H APTT 70.4 H* Fibrinogen 60 L* D-Dimer POC ABG pCO2 POC ABG pO2 Chloride Carbon Dioxide BUN Creatinine Lactic Acid Calcium Magnesium ALT Total Protein Albumin Crossmatch 04/11/17 04/11/17 04/11/17 12:48 13:37 13:39 WBC RBC Hgb Hct MCV MCH RDW Plt Count PT INR APTT Fibrinogen D-Dimer POC ABG pCO2 POC ABG pO2 Chloride 108.3 H Carbon Dioxide 16 L BUN 4 L Creatinine 0.5 L Lactic Acid 3.30 H* Calcium 6.9 L Magnesium 1.00 L ALT Total Protein Albumin Crossmatch 04/11/17 04/11/17 04/11/17 13:39 14:41 14:46 WBC RBC Hgb Hct MCV MCH RDW Plt Count PT INR APTT Fibrinogen D-Dimer POC ABG pCO2 POC ABG pO2 Chloride 107.7 H Carbon Dioxide 18 L BUN 4 L Creatinine 0.6 L Lactic Acid 2.10 H* Calcium 6.9 L Magnesium ALT < 5 L Total Protein 3.4 L Albumin 1.7 L Crossmatch See Detail 04/12/17 04/12/17 04/12/17 03:35 03:35 03:35 WBC 18.9 H RBC 2.56 L Hgb 7.0 L Hct 21.0 L MCV MCH RDW 17.0 H Plt Count 133 L PT 15.5 H INR 1.17 H APTT Fibrinogen D-Dimer POC ABG pCO2 POC ABG pO2 Chloride 109.8 H Carbon Dioxide 21 L BUN 5 L Creatinine 0.6 L Lactic Acid Calcium 6.9 L Magnesium ALT Total Protein Albumin Crossmatch
[2017-04-12] MEDS: LACTATED RINGERS 1,000 ML IV SCH (18:35)
[2017-04-13] MEDS: MOTRIN PO SCH ×4 (00:55→23:00)
[2017-04-13] MEDS: ceFAZolin 1 GM in NACL 0.9% 20 ML IV SCH ×3 (00:55→16:25)
[2017-04-13] MEDS: LACTATED RINGERS 1,000 ML IV SCH (02:38)
--- NOTE | 2017-04-13 09:47 | Progress Note ---
Assessment and Plan A: S/P with hemorrhage - improved s/p D&C and placement of Bakri Balloon Acute blood loss anemia - s/p 10 units PRBC Coagulation defects - DIC - improving after 1 unit FFP P: -Will obtain CBC now -Discontinue antibiotics if wbc improved -Will continue to encourage ambulation -Like D/C in ~ 24 hours if edema of the ARM improves and CBC acceptable - Patient Problems (1) hemorrhage Current Visit: Yes Status: Acute (2) DIC (disseminated intravascular coagulation) Current Visit: Yes Status: Acute Subjective - Subjective Date of service: 04/13/17 Principal diagnosis: Acute blood loss anemia (symptomatic); Post Hemorrhage Interval history: Patient seen, stable. No vaginal bleeding and uterus firm and well contracted. She has edema of the right arm, no tenderness. Patient reports: appetite normal, voiding normally, pain well controlled, flatus , bowel movement, ambulating normally, no dizzy ambulation, no nauseated : doing well Objective - Vital Signs Latest vital signs: Vital Signs Temp Pulse Resp BP BP BP Pulse Ox 04/13/17 08:18 98.8 F 63 20 156/104 100 04/13/17 01:10 98.6 F 63 18 112/70 99 04/12/17 19:00 99.2 F 74 18 108/62 108/62 99 04/12/17 17:00 99 H 30 H 107/04/12/17 16:30 93 H 21 107/04/12/17 16:26 98.6 F 04/12/17 16:00 82 22 107/67 100 04/12/17 15:43 98.4 F 04/12/17 15:40 79 23 105/68 100 04/12/17 15:30 88 22 105/68 100 04/12/17 15:20 84 17 105/68 100 04/12/17 15:14 98.9 F 04/12/17 15:10 74 21 105/68 100 04/12/17 15:00 87 13 105/68 100 04/12/17 14:30 91 H 15 116/67 100 04/12/17 14:00 85 14 116/67 100 04/12/17 13:56 98.8 F 04/12/17 13:50 90 19 101/64 100 04/12/17 13:40 98.7 F 92 H 23 101/64 100 04/12/17 13:30 92 H 14 106/61 100 04/12/17 13:20 94 H 12 106/61 100 04/12/17 13:10 85 21 106/61 99 04/12/17 13:00 88 16 99 04/12/17 12:50 85 21 98 04/12/17 12:40 88 24 99 04/12/17 12:17 98.1 F 04/12/17 12:00 93 H 23 106/65 100 04/12/17 11:30 96 H 19 106/61 04/12/17 11:00 93 H 24 106/61 100 04/12/17 10:30 91 H 28 H 107/60 99 04/12/17 10:00 96 H 20 106/64 100 Intake and Output 04/12/17 04/13/17 04/13/17 23:59 07:59 15:59 Intake Total 250 1240 Balance 250 1240 Intake: IV 1000 Lactated Ringers 1,000 ml 1000 @ 125 mls/hr IV DIRECT [facility] Rx#:[id number] Oral 240 Blood Product 250 Leukoreduced Red Blood 250 Cells Unit [id number] Other: Total, Intake Amount 120 # Voids Void 1 - Exam Abdomen: Present: normal appearance, soft. Absent: distention, tenderness, guarding, rigidity Uterus: Present: firm, fundal height below umbilicus Extremities: Present: normal - Labs Labs: Abnormal lab results 04/08/17 04/11/17 Range/Units 12:15 14:46 Crossmatch See Detail See Detail
[2017-04-13 14:20] LABS: Hematocrit 29.4 % (30.3-42.9); Mean Corpuscular HGB Conc 34 % (30-34); Mean Corpuscular Hemoglobin 29 pg (28-32); Mean Corpuscular Volume 84 fl (79-97); Platelet Count 204 K/mm3 (140-440); Red Blood Count 3.49 M/mm3 (3.65-5.03); Red Cell Distribution Width 16.4 % (13.2-15.2)
[2017-04-13 15:03] LABS: Band Neutrophils # (Manual) 0.2 K/mm3; Basophils % (Manual) 0 % (0.0-1.8); Total Cells Counted 100
[2017-04-13 15:04] LABS: Anisocytosis 1+
--- NOTE | 2017-04-13 18:11 | Event Note ---
Date: 04/13/17 Called and informed that patient's blood pressure was 180/100. On review, it appears patient's blood pressure was checked in her leg. On repeat of her blood pressure, it is 128/88 on the left arm. Plan is to repeat blood pressure check in 10-15 minutes. Note patient's white count still elevated though her hemoglobin and hematocrit has improved; she has remained afebrile. Continue IV antibiotics for now, consider ID input tomorrow morning if still elevated.
[2017-04-14] MEDS: ceFAZolin 1 GM in NACL 0.9% 20 ML IV SCH ×2 (00:30→08:45)
[2017-04-14] MEDS: MOTRIN PO SCH ×2 (05:02→11:30)
[2017-04-14 06:18] LABS: Hematocrit 28.6 % (30.3-42.9); Hemoglobin 9.7 gm/dl (10.1-14.3); Mean Corpuscular HGB Conc 34 % (30-34); Mean Corpuscular Hemoglobin 28 pg (28-32); Mean Corpuscular Volume 84 fl (79-97); Platelet Count 225 K/mm3 (140-440); Red Cell Distribution Width 16.6 % (13.2-15.2)
[2017-04-14 08:35] LABS: Anisocytosis 1+; Band Neutrophils # (Manual) 0.2 K/mm3; Total Cells Counted 100
[2017-04-14 08:36] LABS: Macrocytosis Rare; Platelet Estimate Cons
[2017-04-14 09:47] VITALS: BP 122/78
--- NOTE | 2017-04-14 13:09 | Progress Note ---
Assessment and Plan Acute blood loss anemia, symptomatic. hemorrhage. Delivery of a live child at I believe 37 weeks of gestation. History of anemia - get repeat lactic acid level - complete PRBC transfusion - prn analgesia - PT/OT as tolereated - transfer back to mother baby unit ...35' Subjective Date of service: 04/14/17 Principal diagnosis: Acute blood loss anemia (symptomatic); Post Hemorrhage Interval history: Patient seen today for: Acute blood loss anemia (symptomatic); Post Hemorrhage Seen and examined at bedside; 24 hour events reviewed; nursing and respiratory care staff consulted; no adverse overnight events reported to me; Objective Vital Signs - 12hr 04/14/17 04/14/17 05:02 08:20 Temperature 98.2 F Pulse Rate 54 L Respiratory 18 20 Rate Blood Pressure 122/78 [Right] Constitutional: no acute distress, alert Eyes: non-icteric ENT: oropharynx moist Neck: supple, no lymphadenopathy, no JVD Effort: normal Ascultation: Bilateral: clear Percussion: Bilateral: not dull Cardiovascular: regular rate and rhythm, other (no rubs or murmurs) Gastrointestinal: normoactive bowel sounds, soft, non-tender, other (distended post ) Integumentary: normal Extremities: no cyanosis, no edema, pulses normal, no ischemia or petechiae Neurologic: normal mental status, non-focal exam, pupils equal and round, motor strength normal and Psychiatric: mood appropriate, affect normal CBC and BMP: 04/14/17 05:21 04/12/17 03:35 ABG, PT/INR, D-dimer: ABG POC ABG pH 7.391 (7.35-7.45) 04/10/17 21:48 POC ABG pCO2 27.3 (35-45) L 04/10/17 21:48 POC ABG pO2 341 (80-105) H 04/10/17 21:48 POC ABG HCO3 16.6 04/10/17 21:48 POC ABG Total CO2 17 04/10/17 21:48 POC ABG O2 Sat 100 04/10/17 21:48 PT/INR, D-dimer PT 15.5 Sec. (12.2-14.9) H 04/12/17 03:35 INR 1.17 (0.87-1.13) H 04/12/17 03:35 D-Dimer > 49405 ng/mlDDU (0-234) H 04/10/17 00:37 Abnormal lab findings: Abnormal Labs 04/08/17 04/08/17 04/08/17 09:45 12:15 22:39 WBC RBC 3.59 L Hgb 6.4 L 8.1 L Hct 20.5 L 25.3 L MCV 71 L MCH 23 L RDW 20.6 H Plt Count Seg Neuts % (Manual) Lymphocytes % (Manual) Nucleated RBC % Seg Neutrophils # Man Basophils # (Manual) PT INR APTT Fibrinogen D-Dimer POC ABG pCO2 POC ABG pO2 Chloride Carbon Dioxide BUN Creatinine Lactic Acid Calcium Magnesium ALT Total Protein Albumin Crossmatch See Detail 04/10/17 04/10/17 04/10/17 00:37 20:50 21:48 WBC RBC Hgb 6.7 L Hct 22.1 L MCV MCH RDW Plt Count Seg Neuts % (Manual) Lymphocytes % (Manual) Nucleated RBC % Seg Neutrophils # Man Basophils # (Manual) PT INR APTT Fibrinogen D-Dimer > 78964 H POC ABG pCO2 27.3 L POC ABG pO2 341 H Chloride Carbon Dioxide BUN Creatinine Lactic Acid Calcium Magnesium ALT Total Protein Albumin Crossmatch 04/10/17 04/11/17 04/11/17 23:20 07:48 12:48 WBC 26.2 H RBC 2.37 L Hgb 7.3 L 6.4 L Hct 21.6 L 19.7 L* MCV MCH 27 L RDW 18.3 H Plt Count 122 L Seg Neuts % (Manual) Lymphocytes % (Manual) Nucleated RBC % Seg Neutrophils # Man Basophils # (Manual) PT 37.0 H INR 3.43 H APTT 70.4 H* Fibrinogen 60 L* D-Dimer POC ABG pCO2 POC ABG pO2 Chloride Carbon Dioxide BUN Creatinine Lactic Acid Calcium Magnesium ALT Total Protein Albumin Crossmatch 04/11/17 04/11/17 04/11/17 12:48 13:37 13:39 WBC RBC Hgb Hct MCV MCH RDW Plt Count Seg Neuts % (Manual) Lymphocytes % (Manual) Nucleated RBC % Seg Neutrophils # Man Basophils # (Manual) PT INR APTT Fibrinogen D-Dimer POC ABG pCO2 POC ABG pO2 Chloride 108.3 H Carbon Dioxide 16 L BUN 4 L Creatinine 0.5 L Lactic Acid 3.30 H* Calcium 6.9 L Magnesium 1.00 L ALT Total Protein Albumin Crossmatch 04/11/17 04/11/17 04/11/17 13:39 14:41 14:46 WBC RBC Hgb Hct MCV MCH RDW Plt Count Seg Neuts % (Manual) Lymphocytes % (Manual) Nucleated RBC % Seg Neutrophils # Man Basophils # (Manual) PT INR APTT Fibrinogen D-Dimer POC ABG pCO2 POC ABG pO2 Chloride 107.7 H Carbon Dioxide 18 L BUN 4 L Creatinine 0.6 L Lactic Acid 2.10 H* Calcium 6.9 L Magnesium ALT < 5 L Total Protein 3.4 L Albumin 1.7 L Crossmatch See Detail 04/12/17 04/12/17 04/12/17 03:35 03:35 03:35 WBC 18.9 H RBC 2.56 L Hgb 7.0 L Hct 21.0 L MCV MCH RDW 17.0 H Plt Count 133 L Seg Neuts % (Manual) Lymphocytes % (Manual) Nucleated RBC % Seg Neutrophils # Man Basophils # (Manual) PT 15.5 H INR 1.17 H APTT Fibrinogen D-Dimer POC ABG pCO2 POC ABG pO2 Chloride 109.8 H Carbon Dioxide 21 L BUN 5 L Creatinine 0.6 L Lactic Acid Calcium 6.9 L Magnesium ALT Total Protein Albumin Crossmatch 04/13/17 04/14/17 13:42 05:21 WBC 21.1 H 15.6 H RBC 3.49 L 3.40 L Hgb 10.0 L D 9.7 L Hct 29.4 L D 28.6 L MCV MCH RDW 16.4 H 16.6 H Plt Count Seg Neuts % (Manual) 87.0 H 82.0 H Lymphocytes % (Manual) 8.0 L 12.0 L Nucleated RBC % 1.0 H Seg Neutrophils # Man 18.4 H 12.8 H Basophils # (Manual) 0.2 H PT INR APTT Fibrinogen D-Dimer POC ABG pCO2 POC ABG pO2 Chloride Carbon Dioxide BUN Creatinine Lactic Acid Calcium Magnesium ALT Total Protein Albumin Crossmatch
--- NOTE | 2017-04-14 13:21 | Progress Note ---
Assessment and Plan - Patient Problems (1) 37 weeks gestation of Current Visit: Yes Status: Acute Plan to address problem: S/P . (2) (normal spontaneous vaginal delivery) Current Visit: Yes Status: Acute (3) hemorrhage Current Visit: Yes Status: Acute Plan to address problem: resolved. (4) DIC (disseminated intravascular coagulation) Current Visit: Yes Status: Acute Plan to address problem: S/P a total of 10 units of PRBCs and 1 FFP. H/H stable. No signs of anemia. No active bleeding. (5) Oliguria Current Visit: Yes Status: Acute Plan to address problem: Urine output has normalized.. (6) Anemia Onset Date: ~04/10/17 Current Visit: Yes Status: Acute Qualifiers: Anemia type: other cause Subjective - Subjective Date of service: 04/14/17 Principal diagnosis: Acute blood loss anemia (symptomatic); Post Hemorrhage Interval history: Patient is a 26 year old who is S/P 4 days ago. She was transferred to the floor where she began to have hemorrhage. On exam, the uterus was found to be atonic. IV pitocin, SD cytotec, IM hemabate 4 doses were given. Bleeding continued despite those measures. She recieved 2 units of PRBCs and was taken to the OR for D&C. Scant amount of POCs were found. Blood loss was estimated to be 1500 cc. Bakri ballon was placed. Later on, she went into DIC. She was transferred to ICU. She was transfused a total of 10 units of PRBC and 1 FFP. Bleeding has decreased and Her H/H improved to 7.3/21.6 then to 9.7. She was later sent to floor. She continued to improve. Today, she is alert, awake. oriented at this time. She denies any complaint. Exam: Chest is clear B/L, uterus felt to firm. Perineum: normal lochia. Ext: mild edema. Objective - Vital Signs Latest vital signs: Vital Signs Temp Pulse Resp BP BP 04/14/17 08:20 98.2 F 54 L 20 122/78 04/14/17 05:02 18 04/13/17 23:00 18 04/13/17 18:45 62 113/81 04/13/17 18:08 65 128/88 Intake and Output 04/13/17 04/14/17 04/14/17 23:59 07:59 15:59 Intake Total 600 120 Balance 600 120 Intake: Oral 240 120 Intake, Free Water 360 Other: Total, Intake Amount 240 120 # Voids Void 2 1 - Exam Cardiovascular: Present: Normal S1, Normal S2 Lungs: Present: Clear to auscultation Vulva: both: normal Deep Tendon Reflex Grade: Normal +2 - Labs Labs: Abnormal lab results 04/13/17 04/14/17 Range/Units 13:42 05:21 WBC 21.1 H 15.6 H (4.5-11.0) K/mm3 RBC 3.49 L 3.40 L (3.65-5.03) M/mm3 Hgb 10.0 L D 9.7 L (10.1-14.3) gm/dl Hct 29.4 L D 28.6 L (30.3-42.9) % RDW 16.4 H 16.6 H (13.2-15.2) % Seg Neuts % (Manual) 87.0 H 82.0 H (40.0-70.0) % Lymphocytes % (Manual) 8.0 L 12.0 L (13.4-35.0) % Nucleated RBC % 1.0 H (0.0-0.9) % Seg Neutrophils # Man 18.4 H 12.8 H (1.8-7.7) K/mm3 Basophils # (Manual) 0.2 H (0.0-0.1) K/mm3
--- NOTE | 2017-04-14 13:25 | Discharge Summary ---
Providers - Providers Date of Admission: 04/08/17 14:34 Date of discharge: 04/14/17 Attending physician: FRANCOISE LENZ MD 04/11/17 12:59 Consult to Physician [CONS] Routine Consulting Provider: FARNAZ REVELES Reason For Exam: critical care management Place consult to:: Dr. Reveles Notified:: yes Primary care physician: FRANCOISE LENZ MD Hospitalization Reason for admission: induction of labor Delivery: Episiotomy: none Laceration: none Other procedures: curettage complications: uterine atony, other ( hemorrhage, DIC) Discharge diagnosis: IUP at term delivered, other ( hemorrhage, DIC, oliguria) [place] baby: female Condition at discharge: Stable Disposition: DC-30 STILL A PATIENT - Discharge Diagnoses (1) 37 weeks gestation of Status: Acute (2) (normal spontaneous vaginal delivery) Status: Acute (3) hemorrhage Status: Acute (4) DIC (disseminated intravascular coagulation) Status: Acute (5) Oliguria Status: Acute (6) Anemia Status: Acute Qualifiers: Anemia type: other cause Plan - Provider Discharge Summary Activity: routine Diet: routine Instructions: routine Additional instructions: [] Smoking cessation referral if applicable(refer to patient education folder for contact #) [] Refer to [facility] Booklet Call your doctor immediately for: * Fever > 100.5 * Heavy vaginal bleeding ( >1 pad per hour) * Severe persistent headache * Shortness of breath * Reddened, hot, painful area to leg or breast * Drainage or odor from incision. * Keep incision clean and dry at all times and follow doctor's instructions regarding bathing/showering - Follow up plan Follow up: FRANCOISE LENZ MD [Primary Care Provider] - 7 Days
== END 2017-04-14 18:00 | disposition home or self-care (01) | DRG 767 ==
LOC: US 09:00 → TRG 09:01 → LD 12:22 → US 14:34 → OB 04-10 20:06 → CC1 04-10 20:51 → OB 04-12 18:11
PROVIDERS: ADMIT Obstetrics & Gynecology; ATTEND Obstetrics & Gynecology
PROC: 30233N1 Transfusion of Nonautologous Red Blood Cells into Peripheral Vein, Percutaneous Approach (ICD-10-PCS; 2017-04-08)
PROC: 10E0XZZ Delivery of Products of Conception, External Approach (ICD-10-PCS; principal; 2017-04-10)
PROC: 10D17ZZ Extraction of Products of Conception, Retained, Via Natural or Artificial Opening (ICD-10-PCS; 2017-04-10)
PROC: 0W3R7ZZ Control Bleeding in Genitourinary Tract, Via Natural or Artificial Opening (ICD-10-PCS; 2017-04-10)
PROC: 10907ZC Drainage of Amniotic Fluid, Therapeutic from Products of Conception, Via Natural or Artificial Opening (ICD-10-PCS; 2017-04-10)
PROC: 3E0P7VZ Introduction of Hormone into Female Reproductive, Via Natural or Artificial Opening (ICD-10-PCS; 2017-04-10)
PROC: 4A033R1 Measurement of Arterial Saturation, Peripheral, Percutaneous Approach (ICD-10-PCS; 2017-04-10)
PROC: 30233L1 Transfusion of Nonautologous Fresh Plasma into Peripheral Vein, Percutaneous Approach (ICD-10-PCS; 2017-04-11)
PROC: 30233K1 Transfusion of Nonautologous Frozen Plasma into Peripheral Vein, Percutaneous Approach (ICD-10-PCS; 2017-04-11)
DX: O99.02 Anemia complicating childbirth (principal); O41.03X0 Oligohydramnios, third trimester, not applicable or unspecified; O72.1 Other immediate postpartum hemorrhage; D62 Acute posthemorrhagic anemia; O76 Abnormality in fetal heart rate and rhythm complicating labor and delivery; Z3A.37 37 weeks gestation of pregnancy; Z37.0 Single live birth; O72.3 Postpartum coagulation defects; O90.4 Postpartum acute kidney failure; O90.89 Other complications of the puerperium, not elsewhere classified
CPT/HCPCS: 36415; 36600; 76815; 76819; 76998; 80048; 80053; 82140; 82803; 82962; 83735; 84100; 85007; 85014; 85018; 85025; 85027; 85379; 85384; 85610; 85730; 86592; 86850; 86900; 86901; 86920; 88305; 99211; G0463; J0595; J0690; J1200; J2210; J2250; J2590; J2704; J3010; J7030; J7040; J7120; P9016; P9017